=== PATIENT | female | born 1980 | race Caucasian/White ===

== ENCOUNTER 2018-02-23 10:10 | Emergency (ER) | payer SELFPAY ==
[2018-02-23 10:11] VITALS: BP 181/111; PULSE 104; RESP 17; TEMP 37.1; O2SAT 93; BMI 22.4
--- NOTE | 2018-02-23 10:32 | ED.VISSUMM ---
- ER Visit Summary Date of Service: 02/23/18 Chief Complaint: Abdominal pain, nausea, cough, sore throat History of Present Illness: The patient is a 38 F reports sinus pressure and headache for the past 3 or 4 days. She states sometimes she bends over and stands up she feels the pressure shifting. She has had runny nose and posterior pharyngeal drainage. She has mild nausea and cough. She denies fever or chills. She has had no vomiting or diarrhea. She states her abdomen she believes is sore from coughing. Physical Examination: Vital signs are significant for blood pressure of 181/111, temperature 98.8, heart rate 104, respiratory rate 17, pulse ox 93% on room air. Patient sitting upright in bed in no acute distress. She is nontoxic appearing. Head and neck examination reveals TMs to be clear bilaterally. She has mild posterior pharyngeal drainage. Uvula is midline and not enlarged. She is tolerating secretions well and has a strong voice. Heart is regular rate and rhythm. Lungs are clear. Abdomen is soft with minimal diffuse tenderness. Active bowel sounds are noted throughout. There is no guarding or rebound. Test Results: Two-view chest x-ray per my read reveals no focal infiltrate. Emergency Department Course and Treatment: Patient was given Fioricet, Zofran, and Afrin nasal spray. Repeat evaluation she states she still has a headache but overall does feel improved. Lungs remain clear with good air movement. Patient be discharged with a prescription for Fioricet. Blood pressure will be rechecked prior to discharge. Treatment Plan: [] Disposition: Discharge Impression: 1. Viral URI 2. Sinus headache This note was generated with [employer] dictation software. It may contain incorrect words, spelling, and punctuation that were not noted in review of the chart prior to signing ED Disposition - Plan for ED Patient: Chief Complaint: Abd Pain Referrals: Lukas Mar DO [Primary Care Provider] -
[2018-02-23] MEDS: Ondansetron ODT 4 MG Tablet PO (11:00)
[2018-02-23] MEDS: Oxymetazoline 0.05% 1 SPRAY SPRAY.BTL NASAL (11:00)
[2018-02-23] MEDS: Acetaminophen/Butalbital/Caffe 1 Tablet 2 TABLET PO (11:08)
--- NOTE | 2018-02-23 11:20 | RAD_ITS ---
STUDY: X-RAY CHEST REASON FOR EXAM: Female, 38 years old. Cough and sore throat x2 days. TECHNIQUE: PA and lateral views. COMPARISON: None. FINDINGS: The lungs are clear and expanded. There is no demonstrated pleural abnormality. Normal size heart. Normal mediastinum and heidy. Normal visualized pulmonary arteries. Normal visualized aortic arch and descending thoracic aorta. Normal visualized thoracic spine. Normal visualized ribs, clavicles, and shoulders. There is no demonstrated abnormality of the visualized soft tissue structures of the upper abdomen. RAD/Chest PA and Lateral IMPRESSION: Normal x-ray examination of the chest. Electronically Signed: Foster Del Cid MD at 12:02 EDT , Service support ,
--- NOTE | 2018-02-23 12:03 | ED.DEP ---
ED Disposition - Plan for ED Patient: Disposition: Home or Assisted Living Chief Complaint: Abd Pain Instructions: ED URI Viral, ED Headache Sinus Prescriptions: Acetaminophen/Butalbital/Caffe [Fioricet] 1 - 2 tablet PO Q4H PRN PRN #14 tablet PRN Reason: Headache Referrals: Lukas Mar DO [Primary Care Provider] - 1 Week if not improving
[2018-02-23 12:18] VITALS: BP 164/106; PULSE 87; RESP 14; O2SAT 98
== END 2018-02-23 12:22 | disposition home or self-care (01) ==
PROVIDERS: Emergency Provider Emergency Medicine; Family Provider Student in an Organized Health Care Education/Training Program; PCP Student in an Organized Health Care Education/Training Program
DX: J06.9 Acute upper respiratory infection, unspecified (principal); R51 Headache; Z72.0 Tobacco use
CPT/HCPCS: 71046; 99284

== ENCOUNTER 2018-04-13 02:45 | Emergency (ER) | payer SELFPAY ==
[2018-04-13 02:45] VITALS: BP 183/119; PULSE 104; RESP 20; TEMP 37; O2SAT 97; BMI 23.8
--- NOTE | 2018-04-13 02:55 | ED.VISSUMM ---
- ER Visit Summary Date of Service: 04/13/18 Chief Complaint: Left elbow pain after fall and injury History of Present Illness: The patient is a 38 F trip yesterday in the kitchen striking her left elbow versus a counter. Has had pain and swelling since that time. No prior history or surgery to the left upper extremity. She is right-hand dominant. Denies other injuries. Physical Examination: Well-appearing middle-age female. Vital signs are stable afebrile. H EENT exam unremarkable nontender. Pupils are round reactive light. No signs of facial or scalp trauma. C-spine nontender. Normal range of motion. Lungs clear to auscultation bilaterally. Heart regular rhythm no murmur. Rate about 100. Chest wall nontender. Abdomen soft nontender. No peritoneal signs. Pelvic girdle intact. The right upper and both lower extremities are nontender normal range of motion. No foreign bodies. Neurovascular intact. Back nontender. Her left upper extremity she has pain on palpation of the left elbow. There is a contusion and swelling. She has full flexion but can only extend to about 150?. She cannot do 180? of extension. The shoulder and proximal humerus along with the mid and distal forearm wrist and hand are nontender neurovascular intact. She has 5 out of 5 filter tank tender helper strength. Normal sensation. And a strong radial pulse. Neurological exam is unremarkable. Test Results: Left elbow x-ray 3 views shows soft tissue swelling but no fracture or dislocation. Emergency Department Course and Treatment: [place] ?2 for pain. Treatment Plan: Repeat exam patient is doing well at 0308. Ice and elevate. [place] home pack for severe pain otherwise Motrin for pain and swelling. Follow-up with her primary care physician if not improving in 1 week. Disposition: Discharge Impression: Acute fall Left elbow contusion This note was generated with [employer] dictation software. It may contain incorrect words, spelling, and punctuation that were not noted in review of the chart prior to signing ED Disposition - Plan for ED Patient: Chief Complaint: Upper Extremity Injury Referrals: Lukas Mar DO [Primary Care Provider] -
[2018-04-13] MEDS: HYDROcodone Bitartrate/Apap 5/325 Tablet PO ×2 (03:01→03:19)
--- NOTE | 2018-04-13 03:09 | DCINST.ED_ITS ---
ED Disposition - Plan for ED Patient: Disposition: Home or Assisted Living Chief Complaint: Upper Extremity Injury Instructions: ED Contusion Upper Ext Referrals: Lukas Mar DO [Primary Care Provider] - 1 Week if not improving Additional Instructions: Ice and elevate left elbow to decrease pain and swelling. Motrin for pain and swelling. Very limited [place] for more severe pain. Follow-up your primary care physician in 1 week if not significantly improving. Return to ER if worse. Your x-rays showed soft tissue swelling but no broken bones or dislocations.
[2018-04-13 03:21] VITALS: PULSE 100; RESP 16; O2SAT 97
== END 2018-04-13 03:22 | disposition home or self-care (01) ==
PROVIDERS: Emergency Provider Emergency Medicine; Family Provider Student in an Organized Health Care Education/Training Program; PCP Student in an Organized Health Care Education/Training Program
DX: S50.02XA Contusion of left elbow, initial encounter (principal); W01.198A Fall on same level from slipping, tripping and stumbling with subsequent striking against other object, initial encounter; Y93.9 Activity, unspecified; Y92.000 Kitchen of unspecified non-institutional (private) residence as the place of occurrence of the external cause; Y99.9 Unspecified external cause status; D64.9 Anemia, unspecified; Z72.0 Tobacco use
CPT/HCPCS: 73080; 99283

== ENCOUNTER 2018-08-23 20:07 | Emergency (ER) | payer SELFPAY ==
[2018-08-23 20:09] VITALS: BP 189/119; PULSE 120; RESP 16; TEMP 36.8; O2SAT 97; BMI 22.5
--- NOTE | 2018-08-23 21:02 | ED.RN ---
pt left without being seen.
== END 2018-08-23 21:02 ==
LOC: ED 21:04
PROVIDERS: Emergency Provider Emergency Medicine; Family Provider Student in an Organized Health Care Education/Training Program; PCP Student in an Organized Health Care Education/Training Program
DX: R51 Headache (principal)

== ENCOUNTER 2018-09-11 21:02 | Emergency (ER) | payer SELFPAY ==
[2018-09-11 21:03] VITALS: BP 157/97; PULSE 123; RESP 18; TEMP 36.7; O2SAT 96; BMI 23.3
--- NOTE | 2018-09-11 21:37 | ED.VISSUMM ---
- ER Visit Summary Date of Service: 09/11/18 Chief Complaint: Migraine headache History of Present Illness: The patient is a 38 F history of migraine headaches, ovarian cancer, anemia and hypertension. Patient states she is had migraine A for last 2 days. Also tonight they were pulled over by the police and that is when she said she had a headache and came to the ER. She denies any falls or head trauma. She is on no blood thinners. She is a history of migraines and states this is similar to her other migraine. She does have photophobia. Physical Examination: Middle-aged female. Vital signs are stable. She is afebrile. She does not accept. HEENT exam pupils round reactive light. No signs of trauma to her face or scalp. Pupils are about 2-3 mm bilaterally. Neck nontender no meningismus. Able to touch chin to chest. Lungs clear to auscultation bilaterally. Heart tachycardic rate about 120 no murmur. Chest wall nontender. Abdomen soft and nontender. Normal bowel sounds no peritoneal signs. Remedies moves all 4. Neurovascular intact. Equal symmetrical customs investigator strength. Dorsi plantar flexion intact. Back nontender. Patient is very thin and cachectic. Neurologically awake and alert with no focal motor deficits. NIH score is 0. Test Results: None Emergency Department Course and Treatment: Patient was offered IV medications and fluids. She refused. Stated she only wanted a Fioricet and wanted to go home. She will be given 2 Fioricet discharge. Treatment Plan: Discharge. Prescription written for her lisinopril and clonidine that she is out of both prescriptions for her blood pressure. Follow-up with her PCP. Disposition: Discharge Impression: Acute cephalgia History of migraine headaches History of meth amphetamine abuse History of hypertension out of medications with med refill This note was generated with [employer] dictation software. It may contain incorrect words, spelling, and punctuation that were not noted in review of the chart prior to signing ED Disposition - Plan for ED Patient: Chief Complaint: Headache Referrals: Lukas Mar DO [Primary Care Provider] -
--- NOTE | 2018-09-11 21:40 | ED.DCSUM_ITS ---
- ER Visit Summary Date of Service: 09/11/18 Chief Complaint: Migraine headache History of Present Illness: The patient is a 38 F history of migraine headaches, ovarian cancer, anemia and hypertension. Patient states she is had migraine A for last 2 days. Also tonight they were pulled over by the police and that is when she said she had a headache and came to the ER. She denies any falls or head trauma. She is on no blood thinners. She is a history of migraines and states this is similar to her other migraine. She does have photophobia. Physical Examination: Middle-aged female. Vital signs are stable. She is afebrile. She does not accept. HEENT exam pupils round reactive light. No signs of trauma to her face or scalp. Pupils are about 2-3 mm bilaterally. Neck nontender no meningismus. Able to touch chin to chest. Lungs clear to auscultation bilaterally. Heart tachycardic rate about 120 no murmur. Chest wall nontender. Abdomen soft and nontender. Normal bowel sounds no peritoneal signs. Remedies moves all 4. Neurovascular intact. Equal symmetrical sewer cleaner strength. Dorsi plantar flexion intact. Back nontender. Patient is very thin and cachectic. Neurologically awake and alert with no focal motor deficits. NIH score is 0. Test Results: None Emergency Department Course and Treatment: Patient was offered IV medications and fluids. She refused. Stated she only wanted a Fioricet and wanted to go home. She will be given 2 Fioricet discharge. Treatment Plan: Discharge. Prescription written for her lisinopril and clonidine that she is out of both prescriptions for her blood pressure. Follow- up with her PCP. Disposition: Discharge Impression: Acute cephalgia History of migraine headaches History of meth amphetamine abuse History of hypertension out of medications with med refill This note was generated with [employer] dictation software. It may contain incorrect words, spelling, and punctuation that were not noted in review of the chart prior to signing ED Disposition - Plan for ED Patient: Chief Complaint: Headache Referrals: Lukas Mar DO [Primary Care Provider] -
--- NOTE | 2018-09-11 21:40 | ED.DEP ---
ED Disposition - Plan for ED Patient: Disposition: Home or Assisted Living Chief Complaint: Headache Instructions: ED Headache Migraine Prescriptions: Lisinopril [Prinivil] 10 mg PO DAILY #30 tab Clonidine HCl [Catapres] 0.1 mg PO BID #60 tab Referrals: Lukas Mar DO [Primary Care Provider] - As Needed Additional Instructions: Follow-up with your primary care physician.
[2018-09-11] MEDS: Acetaminophen/Butalbital/Caffe 1 Tablet 2 TABLET PO (21:49)
[2018-09-11 21:53] VITALS: BP 159/94; PULSE 106; RESP 20; O2SAT 96
--- NOTE | 2018-09-11 21:53 | ED.RN ---
pt verbalized that she wanted to stay clean(from drugs) encouragement given and educated on 180.
--- OUTSIDE RECORDS SUMMARY | 2018-11-16 08:44 | XMS RPT_ITS ---
:1980 Author Organization [facility] Care Team Providers Name Role Phone Lukas Mar Primary Care Unavailable Omar Ortiz Attending Unavailable Lukas Mar Primary Care Unavailable Jamie Bean Attending Unavailable Lukas Mar Primary Care Unavailable Reina Gonzalez Attending Unavailable Lukas Mar Primary Care Unavailable Alex Todd Attending Unavailable Lukas Mar Primary Care Unavailable Jamie Bean Attending Unavailable PROBLEMS PROBLEMS No Problem Records FoundPROCEDURES PROCEDURES No Procedure Records FoundRESULTS RESULTS EMERGENCY DEPARTMENT Observed: 09/12/2018 Status: F Source: [place] SUMMARY 12:00 AM [facility] Medical Records Department [address] [address] Emergency Department Summary 09/11/187 MR#: [id number] Acct: [id number] Name: KASSIE PRADO Rep #: [id number] : 1980 38 From: Jamie Bean MD PCP: Lukas Ferreira DO Status: DEP ER - ER Visit Summary Date of Service: 09/11/18 Chief Complaint: Migraine headache History of Present Illness: The patient is a 38 F history of migraine headaches, ovarian cancer, anemia and hypertension. Patient states she is had migraine A for last 2 days. Also tonight they were pulled over by the police and that is when she said she had a headache and came to the ER. She denies any falls or head trauma. She is on no blood thinners. She is a history of migraines and states this is similar to her other migraine. She does have photophobia. Physical Examination: Middle-aged female. Vital signs are stable. She is afebrile. She does not accept. HEENT exam pupils round reactive light. No signs of trauma to her face or scalp. Pupils are about 2-3 mm bilaterally. Neck nontender no meningismus. Able to touch chin to chest. Lungs clear to auscultation bilaterally. Heart tachycardic rate about 120 no murmur. Chest wall nontender. Abdomen soft and nontender. Normal bowel sounds no peritoneal signs. Remedies moves all 4. Neurovascular intact. Equal symmetrical merchandise planner strength. Dorsi plantar flexion intact. Back nontender. Patient is very thin and cachectic. Neurologically awake and alert with no focal motor deficits. NIH score is 0. Test Results: None Emergency Department Course and Treatment: Patient was offered IV medications and fluids. She refused. Stated she only wanted a Fioricet and wanted to go home. She will be given 2 Fioricet discharge. Treatment Plan: Discharge. Prescription written for her lisinopril and clonidine that she is out of both prescriptions for her blood pressure. Follow- up with her PCP. Disposition: Discharge Impression: Acute cephalgia History of migraine headaches History of meth amphetamine abuse History of hypertension out of medications with med refill This note was generated with [employer] dictation software. It may contain incorrect words, spelling, and punctuation that were not noted in review of the chart prior to signing ED Disposition - Plan for ED Patient: Chief Complaint: Headache Referrals: Lukas Mar, DO [Primary Care Provider] - What to do if you have Problems For any increased pain, shortness of breath, bleeding, nausea or vomiting, chest pain, or any unexpected problems, contact your Primary Care Provider. Call [facility] ([phone]) or report to the closest Emergency Room. Call 911 if necessary. 09/12/18 0000 <Electronically signed by Jamie Bean MD> Date Jamie Bean MD Cosigner Signature (If Indicated): Date CC: Lukas Ferreira DO DISCHARGE INSTRUCTION Observed: 09/12/2018 Status: F Source: [place] 12:00 AM [facility] [place] [facility] Medical Records Department [address] [place] [address] Discharge Instruction 09/11/18 2140 MR#: [id number] Acct: [id number] Name: KASSIE PRADO Rep #: [id number] : 1980 38 From: Jamie Bean MD PCP: Lukas Ferreira DO Status: DEP ER ED Disposition - Plan for ED Patient: Disposition: Home or Assisted Living Chief Complaint: Headache Instructions: ED Headache Migraine Prescriptions: Lisinopril [Prinivil] 10 mg PO DAILY #30 tab Clonidine HCl [Catapres] 0.1 mg PO BID #60 tab Referrals: Lukas Mar DO [Primary Care Provider] - As Needed Additional Instructions: Follow-up with your primary care physician. What to do if you have Problems For any increased pain, shortness of breath, bleeding, nausea or vomiting, chest pain, or any unexpected problems, contact your Primary Care Provider. Call [facility] ([phone]) or report to the closest Emergency Room. Call 911 if necessary. 09/12/18 0000 <Electronically signed by Jamie Bean MD> Date Jamie Bean MD Cosigner Signature (If Indicated): Date CC: Lukas Ferreira DO CNCO Observed: 08/27/2018 Status: COMPLETED Source: [place] 12:00 AM [facility] RE[facility] Letter Text Department of Family Medicine [address] [place], [place] [address] Appointments: [phone] August 27, 2018 Kassie Prado [address] [facility] [address] F#: [id number] Dear Ms. Prado , It has come to my attention that you missed your appointment on 08/20/2018 without calling to cancel. This is the 3RD time in the last 12 months that we have discovered that you have failed to keep an appointment without calling to cancel. We have sent you (2) letters on 12/29/2017 and 07/21/2018 regarding previous missed appointments. Again, I want to reiterate that it is your responsibility to keep appointments and to alert us in a timely manner when you are unable to do so. Our first concern is your health. If the medical problem for which you made the appointment is still present, please reschedule soon so that you can receive care for that problem. It is important that you notify our office if you are unable to make an appointment, so we may use that time to see other patients. If our information is not correct, I would like you to please call us so we can correct out records. Our protocol regarding patients that do not show up for appointments, four times within a rolling year?s period, without calling to notify us of the cancellation, is to ask you to take immediate steps to place your self under the care of a new practitioner outside of the Department of Family Medicine. A rolling year for you is defined as the date of the first incident forward within a 12 month period. Be mindful that you already have (3) incidents. If you have a fourth occurrence we will expect you to take immediate steps to place yourself under the care of a practitioner outside of the Department of Family Medicine. I hope that you will make every effort to keep in touch with our office should problems arise in your ability to follow through with scheduled appointments. Again, if any of this information is incorrect, I apologize in advance. Please call the [facility] Office at [phone], if you have questions about this protocol or question the data that we have on file so that we can delete this letter from your file if there is an error. Sincerely, Dr. Mar EMERGENCY DEPARTMENT Observed: 04/13/2018 Status: F Source: [place] SUMMARY 5:58 AM [facility] [place] [facility] Medical Records Department [address] [place] [address] Emergency Department Summary 04/13/18 0255 MR#: [id number] Acct: [id number] Name: KASSIE PRADO Rep #: [id number] : 1980 38 From: Jamie Bean MD PCP: Lukas Ferreira DO Status: DEP ER - ER Visit Summary Date of Service: 04/13/18 Chief Complaint: Left elbow pain after fall and injury History of Present Illness: The patient is a 38 F trip yesterday in the kitchen striking her left elbow versus a counter. Has had pain and swelling since that time. No prior history or surgery to the left upper extremity. She is right-hand dominant. Denies other injuries. Physical Examination: Well-appearing middle-age female. Vital signs are stable afebrile. H EENT exam unremarkable nontender. Pupils are round reactive light. No signs of facial or scalp trauma. C-spine nontender. Normal range of motion. Lungs clear to auscultation bilaterally. Heart regular rhythm no murmur. Rate about 100. Chest wall nontender. Abdomen soft nontender. No peritoneal signs. Pelvic girdle intact. The right upper and both lower extremities are nontender normal range of motion. No foreign bodies. Neurovascular intact. Back nontender. Her left upper extremity she has pain on palpation of the left elbow. There is a contusion and swelling. She has full flexion but can only extend to about 150 . She cannot do 180 of extension. The shoulder and proximal humerus along with the mid and distal forearm wrist and hand are nontender neurovascular intact. She has 5 out of 5 merchandise planner strength. Normal sensation. And a strong radial pulse. Neurological exam is unremarkable. Test Results: Left elbow x-ray 3 views shows soft tissue swelling but no fracture or dislocation. Emergency Department Course and Treatment: [place] 2 for pain. Treatment Plan: Repeat exam patient is doing well at 0308. Ice and elevate. [place]on home pack for severe pain otherwise Motrin for pain and swelling. Follow- up with her primary care physician if not improving in 1 week. Disposition: Discharge Impression: Acute fall Left elbow contusion This note was generated with tolingoation software. It may contain incorrect words, spelling, and punctuation that were not noted in review of the chart prior to signing ED Disposition - Plan for ED Patient: Chief Complaint: Upper Extremity Injury Referrals: Lukas Mar DO [Primary Care Provider] - What to do if you have Problems For any increased pain, shortness of breath, bleeding, nausea or vomiting, chest pain, or any unexpected problems, contact your Primary Care Provider. Call [facility] ([phone]) or report to the closest Emergency Room. Call 911 if necessary. 04/13/18 0558 <Electronically signed by Jamie Bean MD> Date Jamie Bean MD Cosigner Signature (If Indicated): Date CC: Lukas Ferreira DO DISCHARGE INSTRUCTION Observed: 04/13/2018 Status: F Source: [place] 5:58 AM [facility] [facility] [place] [facility] Medical Records Department [address] [place] [address] Discharge Instruction 04/13/18 0308 MR#: [id number] Acct: [id number] Name: KASSIE PRADO Rep #: [id number] : 1980 38 From: Jamie Bean MD PCP: Lukas Ferreira DO Status: [facility] ER ED Disposition - Plan for ED Patient: Disposition: Home or Assisted Living Chief Complaint: Upper Extremity Injury Instructions: ED Contusion Upper Ext Referrals: Lukas Mar DO [Primary Care Provider] - 1 Week if not improving Additional Instructions: Ice and elevate left elbow to decrease pain and swelling. Motrin for pain and swelling. Very limited Macedon for more severe pain. Follow-up your primary care physician in 1 week if not significantly improving. Return to ER if worse. Your x-rays showed soft tissue swelling but no broken bones or dislocations. What to do if you have Problems For any increased pain, shortness of breath, bleeding, nausea or vomiting, chest pain, or any unexpected problems, contact your Primary Care Provider. Call [facility] ([phone]) or report to the closest Emergency Room. Call 911 if necessary. 04/13/18 0558 <Electronically signed by Jamie Bean MD> Date Jamie Bean MD Cosigner Signature (If Indicated): Date CC: Lukas Ferreira DO ELBOW MIN 3 VIEWS Observed: 04/13/2018 Status: F Source: [place] 2:50 AM [facility] [facility] [place] [facility] Imaging Services [address] [place] [address] [place] [address] Elbow min 3 Views MR#: [id number] Acct: [id number] Name: KASSIE PRADO Rep #: [id number] : 1980 F 38 From: Laurie Levy MD PCP: Lukas Ferreira DO Status: REG ER Study: Elbow min 3 Views Date of Exam: 04/13/18 Exam# [id number] Ordering Dr: Jamie Bean MD STUDY: X-RAY - LEFT ELBOW REASON FOR EXAM: Female, 38 years old. Pain and edema, limited range of motion, status post fall TECHNIQUE: 3 view(s) of the elbow. COMPARISON: None. FINDINGS: Normal visualized humerus, radius and ulna. Normal radiocapitellar and ulnotrochlear articulations. Dorsal soft tissue swelling along the olecranon. RAD/Elbow min 3 Views IMPRESSION: There is no acute displaced fracture or dislocation. Soft tissue injury. Electronically Signed: Laurie Levy MD at 3:12 EDT , Service support , CC: Jamie Bean MD; Lukas Ferreira DO Equipment Man: Signed DISCHARGE INSTRUCTION Observed: 03/16/2018 Status: F Source: [place] 5:13 PM [facility] Medical Records Department [address] [place] [address] Discharge Instruction 03/16/181711 MR#: [id number] Acct: [id number] Name: KASSIE PRADO Rep #: [id number] : 1980 38 From: Alex Todd MD PCP: Lukas Ferreira DO Status: PRE ER ED Disposition - Plan for ED Patient: Chief Complaint: Anxiety Instructions: ED Panic Attack, ED Drug Abuse General Referrals: Lukas Mar DO [Primary Care Provider] - What to do if you have Problems For any increased pain, shortness of breath, bleeding, nausea or vomiting, chest pain, or any unexpected problems, contact your Primary Care Provider. Call [facility] Registry ([phone]) or report to the closest Emergency Room. Call 911 if necessary. 03/16/181712 <Electronically signed by Alex Todd MD> Date Alex Todd MD Cosigner Signature (If Indicated): Date CC: Lukas Ferreira DO EMERGENCY DEPARTMENT Observed: 03/16/2018 Status: F Source: [place] SUMMARY 5:12 PM [facility] Medical Records Department [address] [place] [address] Emergency Department Summary 03/16/181709 MR#: [id number] Acct: [id number] Name: KASSIE PRADO Rep #: [id number] : 1980 38 From: Alex Todd MD PCP: Lukas Ferreira DO Status: PRE ER - ER Visit Summary Date of Service: 03/16/18 Chief Complaint: Crying History of Present Illness: The patient is a 38 F who was arrested today for shoplifting. They were checking her bag and found some possible possible methamphetamine. She was taken to [facility]. She began crying and stating that both of her hands were tingling. She also complains of a headache. She was sent here for evaluation. Patient does admit to methamphetamine use. She denies any chest pain shortness of breath nausea vomiting. Physical Examination: Initial blood pressure 179/115 heart rate 120 Patient very anxious shaking tearful crying Heart regular rhythm tachycardia Lungs are clear Abdomen soft Alert with no focal or lateralizing neurological deficits normal sensation to light touch normal strength Test Results: Not indicated Emergency Department Course and Treatment: Patient was given oral Ativan and monitor. On reevaluation she is resting comfortably in bed. Her repeat heart rate is 84. I do believe that this is related to an anxiety reaction and methamphetamine use. She is improved with Ativan. No diagnostic workup is indicated at this time. I do believe she is medically cleared for fpc. Treatment Plan: [] Disposition: Discharge Impression: Anxiety reaction Methamphetamine abuse This note was generated with [employer] dictation software. It may contain incorrect words, spelling, and punctuation that were not noted in review of the chart prior to signing ED Disposition - Plan for ED Patient: Chief Complaint: Anxiety Referrals: Lukas Mar, DO [Primary Care Provider] - What to do if you have Problems For any increased pain, shortness of breath, bleeding, nausea or vomiting, chest pain, or any unexpected problems, contact your Primary Care Provider. Call [facility] ([phone]) or report to the closest Emergency Room. Call 911 if necessary. 03/16/18 1712 <Electronically signed by Alex Todd MD> Date Alex Todd MD Cosigner Signature (If Indicated): Date CC: Lukas Ferreira DO EMERGENCY DEPARTMENT Observed: 02/23/2018 Status: F Source: [place] SUMMARY 5:22 PM [facility] [facility] Medical Records Department [address] [place] [address] Emergency Department Summary 02/23/18 1032 MR#: [id number] Acct: [id number] Name: KASSIE PRADO Rep #: [id number] : 1980 38 From: Reina Gonzalez MD PCP: Lukas Ferreira DO Status: DEP ER - ER Visit Summary Date of Service: 02/23/18 Chief Complaint: Abdominal pain, nausea, cough, sore throat History of Present Illness: The patient is a 38 F reports sinus pressure and headache for the past 3 or 4 days. She states sometimes she bends over and stands up she feels the pressure shifting. She has had runny nose and posterior pharyngeal drainage. She has mild nausea and cough. She denies fever or chills. She has had no vomiting or diarrhea. She states her abdomen she believes is sore from coughing. Physical Examination: Vital signs are significant for blood pressure of 181/111, temperature 98.8, heart rate 104, respiratory rate 17, pulse ox 93% on room air. Patient sitting upright in bed in no acute distress. She is nontoxic appearing. Head and neck examination reveals TMs to be clear bilaterally. She has mild posterior pharyngeal drainage. Uvula is midline and not enlarged. She is tolerating secretions well and has a strong voice. Heart is regular rate and rhythm. Lungs are clear. Abdomen is soft with minimal diffuse tenderness. Active bowel sounds are noted throughout. There is no guarding or rebound. Test Results: Two-view chest x-ray per my read reveals no focal infiltrate. Emergency Department Course and Treatment: Patient was given Fioricet, Zofran, and Afrin nasal spray. Repeat evaluation she states she still has a headache but overall does feel improved. Lungs remain clear with good air movement. Patient be discharged with a prescription for Fioricet. Blood pressure will be rechecked prior to discharge. Treatment Plan: [] Disposition: Discharge Impression: 1. Viral URI 2. Sinus headache This note was generated with tolingoation software. It may contain incorrect words, spelling, and punctuation that were not noted in review of the chart prior to signing ED Disposition - Plan for ED Patient: Chief Complaint: Abd Pain Referrals: Lukas Mar DO [Primary Care Provider] - What to do if you have Problems For any increased pain, shortness of breath, bleeding, nausea or vomiting, chest pain, or any unexpected problems, contact your Primary Care Provider. Call [facility] ([phone]) or report to the closest Emergency Room. Call 911 if necessary. 02/23/18 1722 <Electronically signed by Reina Gonzalez MD> Date Reina Gonzalez MD Cosigner Signature (If Indicated): Date CC: Lukas Ferreira DO DISCHARGE INSTRUCTION Observed: 02/23/2018 Status: F Source: [place] 12:04 PM [facility] [place] [facility] Medical Records Department [address] [place] [address] Discharge Instruction 02/23/18 1203 MR#: [id number] Acct: [id number] Name: KASSIE PRADO Rep #: [id number] : 1980 38 From: Reina Gonzalez MD PCP: Lukas Ferreira DO Status: REG ER ED Disposition - Plan for ED Patient: Disposition: Home or Assisted Living Chief Complaint: Abd Pain Instructions: ED URI Viral, ED Headache Sinus Prescriptions: Acetaminophen/Butalbital/Caffe [Fioricet] 1 - 2 tablet PO Q4H PRN PRN #14 tablet PRN Reason: Headache Referrals: Lukas Mar DO [Primary Care Provider] - 1 Week if not improving What to do if you have Problems For any increased pain, shortness of breath, bleeding, nausea or vomiting, chest pain, or any unexpected problems, contact your Primary Care Provider. Call [facility] ([phone]) or report to the closest Emergency Room. Call 911 if necessary. 02/23/18 1204 <Electronically signed by Reina Gonzalez MD> Date Reina Gonzalez MD Cosigner Signature (If Indicated): Date CC: Lukas Ferreira DO CHEST PA AND LATERAL Observed: 02/23/2018 Status: F Source: [place] 10:26 AM [facility] [facility] Imaging Services [address] [place] [address] Chest PA and Lateral MR#: [id number] Acct: [id number] Name: KASSIE PRADO Rep #: [id number] : 1980 F 38 From: Foster Del Cid MD PCP: Lukas Ferreira DO Status: REG ER Study: Chest PA and Lateral Date of Exam: 02/23/18 Exam# [id number] Ordering Dr: Reina Gonzalez MD STUDY: X-RAY CHEST REASON FOR EXAM: Female, 38 years old. Cough and sore throat x2 days. TECHNIQUE: PA and lateral views. COMPARISON: None. FINDINGS: The lungs are clear and expanded. There is no demonstrated pleural abnormality. Normal size heart. Normal mediastinum and heidy. Normal visualized pulmonary arteries. Normal visualized aortic arch and descending thoracic aorta. Normal visualized thoracic spine. Normal visualized ribs, clavicles, and shoulders. There is no demonstrated abnormality of the visualized soft tissue structures of the upper abdomen. RAD/Chest PA and Lateral IMPRESSION: Normal x-ray examination of the chest. Electronically Signed: Foster Del Cid MD at 12:02 EDT , Service support , CC: Reina Gonzalez MD; Lukas Ferreira DO Equipment Man: Signed CNCO Observed: 12/29/2017 Status: COMPLETED Source: [place] 12:00 AM [facility] REPOSITORY Letter Text [address] [place] [id number] Kassie Prado [address] [facility] [address] 12/29/2017 [facility] #: [id number] Dear Kassie, It has come to my attention that you have missed your appointment on 11/29/2017 without calling to cancel. Since you have failed to keep an appointment without calling to cancel (24 hours before that scheduled time), we are sending this letter to inform you of our protocol regarding NO SHOWS. Canceling Appointment Policy 1. Because we have very busy practices, we have implemented a policy in which a patient may be discharged from the Clinic for missing 4 appointments within a 12 month rolling year. 2. Please call the Clinic to cancel and/or reschedule an appointment within 24 hours of the appointment or sooner, if possible. This will enable the doctor or other health care provider to schedule that time for another patient. If any of this information is incorrect, I apologize in advance. Please contact our office if you have any questions about this protocol or question the data that we have on file so that we can delete this letter from your file if there is an error. Sincerely, Lukas Mar DO [facility] Observed: 12/29/2017 Status: COMPLETED Source: [place] 12:00 AM [facility] REPOSITORY Letter Text [facility] Medicine [address] [place], [place] [address] 12/29/2017 Kassie Prado [id number] [address] [facility] [address] Dear Ms. Prado: I noted on my schedule today that we had an appointment. I am sorry I missed you. I realize that there are many distractions and busy schedules. Please call ahead of time, if you are unable to make it. If this was because of a miscommunication, please ensure that you speak with one of the schedulers over the phone/in person after each appointment (this is the safest way, since we can't guarantee that you will receive your appointments via mail). If you need to cancel, please call us in advance. Thanks for your understanding, and hope to see you again soon. Sincerely, Jillian Weir NP [facility]CO Observed: 11/07/2017 Status: COMPLETED Source: [place] 12:00 AM [facility] REPOSITORY Letter Text Kassie Prado [address] [facility] [address] 11/07/2017 [facility] #: [id number] Dear , Due to a change in the provider's schedule it has been necessary to reschedule your Appointment. Your original appointment was scheduled for 12/06/2017 at 8:00 AM with Lukas Mar DO. Your new appointment is now scheduled on 11/29/2017 at 8:00 AM with Lukas Mar DO. If this new appointment is not convenient for you, please contact our office at [phone]. Thank you for choosing the [facility] as your Healthcare Provider . Sincerely, Family Medicine Appointment Office PROGRESS Observed: 10/14/2017 Status: COMPLETED Source: [place] 10:26 AM [facility] REPOSITORY HNO ID: [id number] Author: Terri Gutiérrez Psr Service: (none) Author Type: (none) Type: Progress Notes Filed: 10/14/2017 10:26 AM Note Text: 3 rd attempt/left message to call back to schedule CT. Patient has not schedule, My chart message was also sent. PROGRESS Observed: 10/13/2017 Status: COMPLETED Source: [place] 8:58 AM [facility] REPOSITORY HNO ID: [id number] Author: Terri Gutiérrez Psr Service: (none) Author Type: (none) Type: Progress Notes Filed: 10/13/2017 8:58 AM Note Text: 2 nd attempt/left message to call back to schedule CT PROGRESS Observed: 10/10/2017 Status: COMPLETED Source: [place] 9:49 AM [facility] REPOSITORY HNO ID: [id number] Author: Gatito Villanueva Psr Service: (none) Author Type: (none) Type: Progress Notes Filed: 10/12/2017 10:03 PM Note Text: First attempt/message left to schedule CT PROGRESS Observed: 10/08/2017 Status: COMPLETED Source: [place] 1:30 PM [facility] REPOSITORY HNO ID: [id number] Author: Ana Biggs [facility] Service: (none) Author Type: (none) Type: Progress Notes Filed: 10/12/2017 10:03 PM Note Text: Please call patient and assist in scheduling her CT scan. I spoke with Kassie and she states she forgot about her appointment because her grandmother has been sick and in and out of the hospital. She agreed to reschedule her appointment and is scheduled to see Dr. Mar 11/05/17. She states she got a letter in the mail stating her CT scan is covered and she wants to go ahead and schedule that as well. I will transfer to PSR so they can help her do this. The patient has been identified by name and date of : YES I have scheduled the patient for an appointment on 11/05/17 The patient will report to the lab prior to the visit. PHMA Documentation 10/08/2017 Opts out of [facility] No Appointments Scheduled Scheduled PCP Appt Ana Biggs Cma PROGRESS Observed: 10/08/2017 Status: COMPLETED Source: [place] 1:07 PM [facility] REPOSITORY HNO ID: [id number] Author: Ana Kalyan [facility] Service: (none) Author Type: (none) Type: Progress Notes Filed: 10/12/2017 10:03 PM Note Text: PHMA TEAMLET DOCUMENTATION Provider Action/FYI: PSR Action/FYI: Teamlet has identified patient by name and date of . Team: Myself, Vel Abraham Eva, Sue ? Last Office Visit:Visit date not found ? Next Office Visit: Visit date not found ? Last BP/Labs: Blood Pressure: Last 3 Encounter BP Readings: Date: BP: 09/03/2017 180/110 08/29/2017 130/88 05/21/2017 160/117[ismael BP Average[ Lipids: Cholesterol, Total (mg/dL) Date Value 01/20/2015 187 HDL Cholesterol (mg/dL) Date Value 01/20/2015 48 LDL Cholesterol (mg/dL) Date Value 01/20/2015 112 Triglyceride (mg/dL) Date Value 01/20/2015 137 HGB A1C: No results found for: HBA1C TSH: TSH (uU/mL) Date Value 08/19/2017 0.803 03/21/2015 1.340 ) Care Gap: HTN - Last BP NOT under 140/90 Plan: ? Type of appointment needed: Follow-up HTN next available with Provider pcp or [facility] APPLICATIONS MANAGER Labs, HM and Immunization: Health Maintenance Due: TETANUS due on 1989 INFLUENZA(1) due on 04/25/2017 Ana Biggs [facility] CNPTOUTREACH Observed: 10/08/2017 Status: COMPLETED Source: [place] 12:00 AM [facility] REPOSITORY Patient Outreach (INTMWS) KASSIE PRADO ([id number]) 1980 F Date Time Provider Department 10/08/17 ANA BIGGS ([facility]) INTMWS During your visit today, we recorded the following information about you: Ana Biggs [facility] 10/12/2017 10:03 PM Signed PHMA TEAMLET DOCUMENTATION Provider Action/FYI: PSR Action/FYI: Teamlet has identified patient by name and date of . Team: Myself, Vel Abraham Eva, Sue ? Last Office Visit:Visit date not found ? Next Office Visit: Visit date not found ? Last BP/Labs: Blood Pressure: Last 3 Encounter BP Readings: Date: BP: 09/03/2017 180/110 08/29/2017 130/88 05/21/2017 160/117[ismael BP Average[ Lipids: Cholesterol, Total (mg/dL) Date Value 01/20/2015 187 HDL Cholesterol (mg/dL) Date Value 01/20/2015 48 LDL Cholesterol (mg/dL) Date Value 01/20/2015 112 Triglyceride (mg/dL) Date Value 01/20/2015 137 HGB A1C: No results found for: HBA1C TSH: TSH (uU/mL) Date Value 08/19/2017 0.803 03/21/2015 1.340 ) Care Gap: HTN - Last BP NOT under 140/90 Plan: ? Type of appointment needed: Follow-up HTN next available with Provider pcp or [facility] APPLICATIONS MANAGER Labs, HM and Immunization: Health Maintenance Due: TETANUS due on 1989 INFLUENZA(1) due on 04/25/2017 Ana Biggs Cnc Service Technician Ana Biggs [facility] 10/12/2017 10:03 PM Signed Please call patient and assist in scheduling her CT scan. I spoke with Kassie and she states she forgot about her appointment because her grandmother has been sick and in and out of the hospital. She agreed to reschedule her appointment and is scheduled to see Dr. Mar 11/05/17. She states she got a letter in the mail stating her CT scan is covered and she wants to go ahead and schedule that as well. I will transfer to PSR so they can help her do this. The patient has been identified by name and date of : YES I have scheduled the patient for an appointment on 11/05/17 The patient will report to the lab prior to the visit. [facility] Documentation 10/08/2017 Opts out of [facility] No Appointments Scheduled Scheduled PCP Appt Ana Biggs Cma Gatito Villanueva Psr 10/12/2017 10:03 PM Signed First attempt/message left to schedule CT Allergies As of Date: 10/08/2017 Noted Allergy Reaction AMITRIPTYLINE HCL 06/12/2011 14 - Other: See Comments Comments: Woozy. Unconscious for 8h after 1 dose. ATENOLOL 06/14/2011 14 - Other: See Comments Comments: Dropped heart rate CATAPRES (CLONIDINE HCL) 06/12/2011 14 - Other: See Comments Comments: Blistering from clonidine patch, tolerates oral CONTRAST DYE 06/12/2011 2 - Rash Comments: Able to tolerate contrast if prophylaxed with diphenhydramine IMITREX (SUMATRIPTAN SUCCINATE) 03/18/2007 7 - Swelling 12 - Shortness of Breath INDERAL (PROPRANOLOL HCL) 03/18/2007 14 - Other: See Comments Comments: hypotension LATEX 08/06/2016 4 - Hives METOPROLOL 04/18/2011 14 - Other: See Comments Comments: hypotension NORVASC (AMLODIPINE BESYLATE) 03/18/2007 14 - Other: See Comments Comments: hypotension TESSALON (BENZONATATE) 07/09/2016 4 - Hives 12 - Shortness of Breath TORADOL (KETOROLAC TROMETHAMINE) 03/18/2007 4 - Hives 7 - Swelling 9 - Itching 12 - Shortness of Breath ULTRAM (TRAMADOL HCL) 05/21/2017 12 - Shortness of Breath Date Reviewed: 09/03/2017 Reviewed by: Elisha ([facility]) Lana - Fully Assessed Reason for Visit: PHMA/Care Gap Outreach [[id number]] Prescriptions as of 10/08/2017 Sig: AMOXICILLIN 400 MG-POTASSIUM * Give 10 mL orally twice daily* LISINOPRIL 20 MG-HYDROCHLOROT* Take 1 tablet by mouth twice * CARVEDILOL 25 MG TABLET Take 1 tablet by mouth twice * OMEPRAZOLE 20 MG CAPSULE,BRAD* Take 1 capsule by mouth once * JBNAUIROCU-GGGGKKIFTIFWU-TSFZ* Take 1 tablet by mouth twice * DIAZEPAM 5 MG TABLET Take 1 tablet by mouth at bed* ESTRADIOL 1 MG TABLET Take 1 tablet by mouth once d* CETIRIZINE 10 MG TABLET Take 1 tablet by mouth once d* FLUTICASONE 50 MCG/ACTUATION * Use 1 [place] in each nostril d* HYDROCODONE 5 MG-ACETAMINOPHE* Take 1 tablet by mouth every * NORTRIPTYLINE 50 MG CAPSULE Take 1 capsule by mouth daily* CLONIDINE HCL 0.1 MG TABLET Take 1 tablet by mouth twice * ALBUTEROL SULFATE HFA 90 MCG/* Inhale 2 Puffs as instructed * EXCEDRIN MIGRAINE ORAL Take by mouth. Problem List As Of Date 10/08/2017 Noted Resolved Essential hypertension [I10] 06/20/2016 More... Intractable migraine [G43.919] 06/20/2016 More... Other and unspecified ovarian cyst [N83.209] More... Anxiety disorder [F41.9] Chiari I malformation [G93.5] Ovarian cyst, complex [N83.299] 03/13/2015 Insomnia [G47.00] INVALID FOR* Iron deficiency [E61.1] INVALID FOR*03/13/2015 Intractable migraine without status migrainosus*INVALID FOR* Resistant hypertension [I10] INVALID FOR* Acute right ankle pain [M25.571] INVALID FOR* Neck pain [M54.2] INVALID FOR* Encounter Status:Closed by WANDA PRODUSER on 10/12/17 ALLERGIES ALLERGIES DATE TYPE / CODE NAME / CODE REACTION SEVERITY SOURCE Drug clonidine Other Unknown [place] 9 Allergy/221451776( HCl/V844296873(R [facility]) XNORM) Hospital Repository Drug propranolol Other Unknown [place] 9 Allergy/932017584( HCl/T946748447(R [facility]) XNORM) Hospital Repository Drug ketorolac Hives Unknown [place] 9 Allergy/340151134( tromethamine/F00 [facility]) 6339661(RXNORM) Hospital Repository Drug amlodipine Other Unknown Jeramy 9 Allergy/499034372( besylate/C246722 [facility]) 673(RXNORM) Hospital Repository Drug sumatriptan Shortness of Unknown Jeramy 9 Allergy/859074532( succinate/O03431 breath [facility]) 4045(RXNORM) Hospital Repository Drug divalproex Hives Unknown [place] 9 Allergy/586008734( sodium/B61608240 [facility]) 4(RXNORM) Hospital Repository Drug ibuprofen/H31205 Itching Unknown Jeramy 9 Allergy/565026066( 2377(RXNORM) [facility]) [facility] Rep[facility] Drug metoprolol/F0060 Other Unknown [place] 9 Allergy/411237275( 39367(RXNORM) [facility]) [facility] Drug sumatriptan/F006 Shortness of Unknown [place] 9 Allergy/693903886( 643914(RXNORM) breath [facility] Drug tramadol/B172186 Hives Unknown Jeramy 9 Allergy/534050281( 180(RXNORM) [facility] Rep[facility] Drug amitriptyline/F0 Other Unknown [place] 9 Allergy/187274079( 38283639(RXNORM) [facility] SNOMED CT) Hospital Repository Drug rizatriptan/F006 Shortness of Unknown [place] 9 Allergy/405997341( 032876(RXNORM) breath [facility] SNOMED CT) Hospital Repository Miscellaneous CONTRAST DYE Rash Unknown [place] 9 Allergy/094513402( [facility] SNOMED CT) Hospital Repository ENCOUNTERS ENCOUNTERS ADMIT/DISCHARGE ACCOUNT ADMITTING ENCOUNTER LOCATION SOURCE NUMBER CLASS 09/11/2018/ [id number] Emergency Jeramy [place] 9 7 [facility] ing:ED Repository 08/23/2018/ [id number] Emergency Jeramy [place] 8 5 [facility] ing:ED Repository 04/13/2018/ [id number] Emergency Jeramy [place] 8 3 [facility] ing:ED Repository 03/16/2018 [id number] Ambulatory [place] Gable 2 [facility] ing:ED Repository 02/23/2018/ [id number] Emergency [place] Jeramy 8 4 [facility] ing:ED Repository PAYERS PAYERS ENCOUNTER GUARANTOR PAYER SUBSCRIBER SOURCE 09/11/2018 KASSIE Myles Primary NOT GIVENUNK [place] [id number] Insurance:SELF PAY [place] Number: Effective Repository [phone]: (330) Date:2018-09-11 [phone] () 08/23/2018 KASSIE [id number] Primary NOT GIVENUNK Jeramy [place] Dr[place]ot Insurance:SELF PAY [address] [address]Mxi: (330) Number: Effective Repository [phone] () Date:2018-08-23 04/13/2018 KASSIE [id number] Primary NOT GIVENUNK Jeramy [place] DrLot Insurance:SELF PAY [address] [address]Rdo: (330) Number: Effective Repository [phone] () Date:2018-04-13 03/16/2018 Kassie Prado4400 Primary NOT GIVENUNK Jeramy [place] DrLot Insurance:SELF PAY [address] [facility] [address]Nzm: (330) Number: Effective Repository [phone] () Date:2018-03-16 02/23/2018 Kassie Prado4400 Primary NOT GIVENUNK Jeramy [place] Insurance:SELF PAY [facility] [address]Jjx: (330) Number: Effective Repository [phone] () Date:2018-02-23
== END 2018-09-11 21:54 | disposition home or self-care (01) ==
PROVIDERS: Emergency Provider Emergency Medicine; Family Provider Student in an Organized Health Care Education/Training Program; PCP Student in an Organized Health Care Education/Training Program
DX: R51 Headache (principal); F15.10 Other stimulant abuse, uncomplicated; I10 Essential (primary) hypertension; Z85.43 Personal history of malignant neoplasm of ovary; R05 Cough; Z72.0 Tobacco use
CPT/HCPCS: 99285; J7030

== ENCOUNTER 2018-09-30 11:10 | Emergency (ER) | payer SELFPAY ==
[2018-09-30 11:11] VITALS: PULSE 132; RESP 80; TEMP 37.2; O2SAT 96; BMI 23.8
[2018-09-30 11:18] VITALS: BP 190/155; PULSE 135; RESP 80; O2SAT 90
[2018-09-30] MEDS: LORazepam 2 MG/ML Syringe IV (11:51)
[2018-09-30] MEDS: DiphenhydrAMINE 50 MG/ML Syringe 25 MG IV (11:51)
[2018-09-30] MEDS: 0.9% Normal Saline 1,000 ML 1000 ML IV (11:51)
[2018-09-30] MEDS: Metoclopramide 10 MG/2 ML Vial IV (11:51)
[2018-09-30 12:00] VITALS: BP 132/81; PULSE 101; RESP 20; O2SAT 98
[2018-09-30 12:08] LABS: Absolute Neutrophil Count 10.4 X10^3/uL (2.0-7.7); Basophil# 0.05 X10^3/uL; Basophil% 0.4 % (0-1); Eosinophil# 0.38 X10^3/uL; Eosinophils% 2.7 % (0-5); Hematocrit 42.1 % (37-47); Hemoglobin 13.8 g/dl (12.0-15.0); Lymphocyte % 16.4 % (19-41); Mean Corp Hgb Conc 32.8 g/gl (32-36); Mean Corpuscular Hgb 29.7 pg (27.0-32.0); Mean Corpuscular Volume 90.5 fL (81-99); Mean Platelet Vol. 9.7 fl (6.2-12.0); Monocyte# 0.84 X10^3/uL; Neutrophil # 10.38 X10^3/uL (2.7-7.7); Neutrophil % 73.9 % (47-70); Platelet Count 298 K/mm3 (150-450); RBC Distribution Width CV 13.3 % (11.6-14.6); RBC Distribution Width SD 43.8 fl (35.1-43.9); Red Blood Count 4.65 M/mm3 (4.2-5.4)
[2018-09-30 12:10] LABS: POSITIVE COUNT NO; POSITIVE DIFFERENTIAL NO; POSITIVE MORPHOLOGY NO
[2018-09-30 12:18] LABS: Anion Gap 8 (5-15); BUN 13 mg/dL (7-18); BUN/Creat Ratio 16.7 RATIO (10-20); Calcium,Total 8.9 mg/dL (8.5-10.1); Chloride 106 mmol/L (98-107); Creatinine, Serum 0.78 mg/dL (0.55-1.02); EST Glomerular Filtration Rate 87 mL/min (>60); Est Glom Filt Rate - Afr Amer 105 mL/min (>60); Estimated Creatinine Clearance 72.35 ml/min; Glucose 101 mg/dL (74-106); Potassium 3.8 mmol/L (3.5-5.1); Sodium Level 143 mmol/L (136-145)
[2018-09-30 13:07] VITALS: BP 135/77; PULSE 93; RESP 20; O2SAT 100
[2018-09-30 13:43] LABS: Amphetamine Urine VISTA POSITIVE (<1000 ng/mL); Barbiturate Urine VISTA NEGATIVE (< 200 ng/mL); Benzodiazepine Urine VISTA NEGATIVE (< 200 ng/mL); Cocaine Urine VISTA NEGATIVE (< 300 ng/mL); Ecstacy Urine VISTA POSITIVE (< 500 ng/mL); Methadone Urine VISTA NEGATIVE (< 300 ng/mL); PCP Urine VISTA NEGATIVE (< 25 ng/mL); THC Urine VISTA NEGATIVE (< 50 ng/mL); Vista UDS pH Range 5
[2018-09-30 13:50] VITALS: BP 154/83; PULSE 75; RESP 16; O2SAT 94
--- NOTE | 2018-09-30 14:01 | ED.VISSUMM ---
- ER Visit Summary Date of Service: 09/30/18 Chief Complaint: [Hyperventilation] History of Present Illness: The patient is a 38 F [presents to the emergency department with police escort after being arrested at [facility]. Patient apparently was picked up on some warrants and initially appeared to behaving normally and was polite with officers. Once she was told she was being arrested she started to hyperventilate and shake. Officer states that other officers of seen her do this before when she has been arrested multiple times. Patient was found to have drug paraphernalia and she admits to smoking methamphetamines today. She denies feeling suicidal or homicidal. Patient has history of hypertension and anxiety.] Physical Examination: [HEENT-PERRLA, EOMI. Cranial nerves II through XII grossly intact. TMs clear. Mucous membranes moist. No adenopathy. Patient hyperventilating on exam and somewhat diaphoretic. Cardiovascular-regular rate and rhythm without murmur or ectopy Lungs-clear to auscultation, chest wall stable without crepitus or subcu emphysema Abdomen-normoactive bowel sounds, soft, nontender, no rebound or rigidity, no peritoneal signs. Extremities-intact ?4, normal range of motion, normal pulses, atraumatic] Test Results: [CBC with differential obtained showing a 14,000, hemoglobin 13.8, hematocrit 42, placed 298. Chemistries unremarkable. Toxicology screen positive for opiates as well as amphetamines and MDMA.] Emergency Department Course and Treatment: [Patient was complaining of a headache as well and has a history of migraines therefore she was given Reglan and Benadryl as well as a liter normal same fluid bolus. Patient was given Ativan 2 mg IV. Patient stopped hyperventilating and was feeling improved.] Treatment Plan: [Patient will be discharged under custody of police] Disposition: [Discharged] Impression: [Anxiety reaction Illicit drug use] This note was generated with [employer] dictation software. It may contain incorrect words, spelling, and punctuation that were not noted in review of the chart prior to signing ED Disposition - Plan for ED Patient: Referrals: Lukas Mar DO [Primary Care Provider] -
--- NOTE | 2018-09-30 14:05 | ED.DCSUM_ITS ---
- ER Visit Summary Date of Service: 09/30/18 Chief Complaint: [Hyperventilation] History of Present Illness: The patient is a 38 F [presents to the emergency department with police escort after being arrested at [facility]. Patient apparently was picked up on some warrants and initially appeared to behaving n ormally and was polite with officers. Once she was told she was being arrested she started to hyperventilate and shake. Officer states that other officers of seen her do this before when she has been arrested multiple times. Patient was found to have drug paraphernalia and she admits to smoking methamphetamines today. She denies feeling suicidal or homicidal. Patient has history of hypertension and anxiety.] Physical Examination: [HEENT-PERRLA, EOMI. Cranial nerves II through XII grossly intact. TMs clear. Mucous membranes moist. No adenopathy. Patient hyperventilating on exam and somewhat diaphoretic. Cardiovascular-regular rate and rhythm without murmur or ectopy Lungs-clear to auscultation, chest wall stable without crepitus or subcu emphysema Abdomen-normoactive bowel sounds, soft, nontender, no rebound or rigidity, no peritoneal signs. Extremities-intact ?4, normal range of motion, normal pulses, atraumatic] Test Results: [CBC with differential obtained showing a 14,000, hemoglobin 13.8, hematocrit 42, placed 298. Chemistries unremarkable. Toxicology screen positive for opiates as well as amphetamines and MDMA.] Emergency Department Course and Treatment: [Patient was complaining of a headache as well and has a history of migraines therefore she was given Reglan and Benadryl as well as a liter normal same fluid bolus. Patient was given Ativan 2 mg IV. Patient stopped hyperventilating and was feeling improved.] Treatment Plan: [Patient will be discharged under custody of police] Disposition: [Discharged] Impression: [Anxiety reaction Illicit drug use] This note was generated with [employer] dictation software. It may contain incorrect words, spelling, and punctuation that were not noted in review of the chart prior to signing ED Disposition - Plan for ED Patient: Referrals: Lukas Mar DO [Primary Care Provider] -
--- NOTE | 2018-09-30 14:05 | ED.DEP ---
ED Disposition - Plan for ED Patient: Instructions: ED Panic Attack, ED Drug Abuse General, ED Hyperventilation Syndrome Referrals: Lukas Mar DO [Primary Care Provider] - As Needed
[2018-09-30 14:12] VITALS: BP 154/83; PULSE 80; RESP 17; O2SAT 99
== END 2018-09-30 14:13 ==
LOC: ED 13:25
PROVIDERS: Emergency Provider Emergency Medicine; Family Provider Student in an Organized Health Care Education/Training Program; PCP Student in an Organized Health Care Education/Training Program
DX: F41.9 Anxiety disorder, unspecified (principal); F19.10 Other psychoactive substance abuse, uncomplicated; I10 Essential (primary) hypertension; Z72.0 Tobacco use; Z79.899 Other long term (current) drug therapy
CPT/HCPCS: 80048; 80307; 80320; 85025; 99285; J7030; P9612; A4216; G0480

== ENCOUNTER 2018-10-31 13:27 | Inpatient (IN) | payer SELFPAY ==
[2018-10-31] VITALS (8 sets, daily range): BP systolic 134–195; BP diastolic 86–109; PULSE 82–132; RESP 14–20; TEMP 36.8–37.1; O2SAT 96–100; BMI 22.1; BMI 22.4
--- NOTE | 2018-10-31 14:12 | CT_ITS ---
STUDY: CT ABDOMEN AND PELVIS WITHOUT CONTRAST REASON FOR EXAM: Female, 38 years old. ABD PAIN 2 RADIATION DOSAGE (If Supplied By Facility): CTDIvol = ( 6.06 ) mGy, DLP = ( 624.24 ) mGycm TECHNIQUE: Transaxial images were obtained from the dome of the diaphragm to the symphysis pubis with oral contrast, and without intravenous contrast. Sagittal and coronal images were reconstructed. Individualized dose optimization techniques were used for this CT. COMPARISON: None. FINDINGS: The visualized lung bases are unremarkable. The visualized portions of the heart are within normal limits. Normal liver. There are surgical clips in the gallbladder fossa consistent with a prior cholecystectomy. There is a dilated common body measuring 1.3 cm. This is greater than expected status post cholecystectomy patient of this age. Correlate with liver function tests. Normal spleen. Normal pancreas. Normal bilateral adrenal glands. Normal right kidney. Normal left kidney. No definite renal or ureteral stones are seen. There is no hydronephrosis on either side. Normal visualized stomach. Normal small intestine. Moderate to marked fecal retention throughout the colon. There are surgical clips in the region of the appendix consistent with a prior appendectomy. Normal abdominal aorta. Normal inferior vena cava. Normal retroperitoneum. Moderately distended urinary bladder. There is absence of the uterus consistent with a prior hysterectomy. Normal abdominal wall. Normal osseous structures. CT/Abdomen/Pel W ORAL Cont Only IMPRESSION: Dilated common bile. Recommend correlation with liver function test. Moderate to marked fecal retention. Electronically Signed: Ricardo You MD at 16:34 EST , Service support ,
--- NOTE | 2018-10-31 14:14 | ED.VISSUMM ---
- ER Visit Summary Date of Service: 10/31/18 Chief Complaint: Abdominal pain, vomiting History of Present Illness: The patient is a 38 F brought in from senior living for evaluation of abdominal pain vomiting since yesterday. States 5 episodes today with's streaks of blood. History of cholecystectomy, appendectomy and total hysterectomy. States had uterine cancer 2 years ago with significant surgeries performed here by multiple surgeons involved including Dr. Valdivia and gynecology. Denies history of bowel obstructions. No history of pancreatitis. She has been incarcerated for the last month, history of meth use, no use recently. No urinary symptoms. History of IV dye allergy. Physical Examination: General: Alert and oriented ?3, unable to sit still, however cooperative, answering questions HEENT: Normocephalic, atraumatic. Moist mucosa membranes Neck: supple, nontender. Cardiovascular: Regular tachycardic rate 102 and rhythm, no murmurs Respiratory: Normal breath sounds, symmetric, no distress Abdomen: Soft, right mid to side tenderness without guarding or rebound nondistended Extremities: Nontender, no edema, pulses intact ?4 Neuro: no focal neurological deficits. Test Results: White count 13.7, 14.4 creatinine 0.6, lipase 112, liver enzymes normal. Urine noted [address] abdomen pelvis oral contrast dilated common bile duct 1.3 cm. Emergency Department Course and Treatment: Patient tachycardic on arrival was given IV fluids. She reports mild blood in vomit, likely gastritis symptoms. She given Protonix Zofran morphine, no emesis since then. Fluids did improve her heart rate. She has a white count 13.7 CAT scan with dilated common bile duct normal lipase and LFTs. I discussed with covering surgeon Dr. Santos who evaluated in the ED. She will be admitted under his service for further management. Additional morphine given on repeat exam. Treatment Plan: [] Disposition: Admission Impression: 1. Abdominal pain 2. Nausea and vomiting 3. Dilated common bile duct This note was generated with [employer] dictation software. It may contain incorrect words, spelling, and punctuation that were not noted in review of the chart prior to signing ED Disposition - Plan for ED Patient: Disposition: Acute Care [facility] Diagnosis: Abdominal pain, Nausea and vomiting, Common bile duct dilatation Referrals: Lukas Mar DO [Primary Care Provider] -
[2018-10-31 14:36] LABS: Mucous, Urine 0 SEEN /hpf (<or=2+); Red Blood Cells-Urine 0 SEEN /hpf (0-5); White Blood Cells 0 SEEN /hpf (0-5)
[2018-10-31 14:37] LABS: Color, Urine Yellow (Yellow); Glucose, Dipstick Normal (Normal); Ketone-Dipstick Negative (Negative); Leukocyte Esterase-Dipstick Negative /ul (Negative); Nitrite-Dipstick Negative (Negative); Occult Blood-Urine 10 /ul (Negative); Protein-Dipstick Negative (Negative); Urine Bilirubin Dipstick Negative (Negative); Urine Clarity Clear (Clear); Urine Urobilinogen Normal (Normal); Urine pH 6.5 (5.0 - 8.0)
[2018-10-31 14:44] LABS: Bacteria RARE /hpf (None Seen); Squamous Epithelial Cells - UA 0-5 SEEN /hpf (5-10)
[2018-10-31 14:47] LABS: Absolute Lymphocyte Count 1.35 X10^3/ul (0.83-4.51); Absolute Neutrophil Count 11.1 X10^3/uL (2.0-7.7); Basophil# 0.03 X10^3/uL; Basophil% 0.2 % (0-1); Eosinophil# 0.28 X10^3/uL; Hematocrit 45.3 % (37-47); Hemoglobin 14.4 g/dl (12.0-15.0); Lymphocyte # 1.35 X10^3/ul (4.0); Lymphocyte % 9.9 % (19-41); Mean Corp Hgb Conc 31.8 g/gl (32-36); Mean Corpuscular Hgb 29.1 pg (27.0-32.0); Mean Corpuscular Volume 91.5 fL (81-99); Mean Platelet Vol. 9.7 fl (6.2-12.0); Monocyte# 0.84 X10^3/uL; Monocyte% 6.1 % (0-10); Neutrophil # 11.12 X10^3/uL (2.7-7.7); Neutrophil % 81.5 % (47-70); POSITIVE COUNT NO; POSITIVE DIFFERENTIAL NO; POSITIVE MORPHOLOGY NO; Platelet Count 320 K/mm3 (150-450); RBC Distribution Width CV 13.6 % (11.6-14.6); RBC Distribution Width SD 44.3 fl (35.1-43.9); Red Blood Count 4.95 M/mm3 (4.2-5.4); White Blood Count 13.7 K/mm3 (4.4-11.0)
[2018-10-31] MEDS: Ondansetron 4 MG/2 ML Vial IV (14:48)
[2018-10-31] MEDS: 0.9% Normal Saline 1,000 ML 1000 ML IV (14:48)
[2018-10-31] MEDS: Morphine 4 MG/ML Syringe IV ×2 (14:48→17:16)
[2018-10-31 15:02] LABS: ALB/GLOB Ratio 1.1 RATIO (0.9-2.4); AST(SGOT) 10 U/L (15-37); Alanine Aminotransfer ALT/SGPT 15 U/L (13-56); Albumin, Serum 4.1 g/dL (3.2-5.0); Alkaline Phosphatase 105 U/L (45-117); Anion Gap 7 (5-15); BUN 11 mg/dL (7-18); BUN/Creat Ratio 17.7 RATIO (10-20); Calcium,Total 9.1 mg/dL (8.5-10.1); Chloride 104 mmol/L (98-107); Creatinine, Serum 0.62 mg/dL (0.55-1.02); EST Glomerular Filtration Rate 113 mL/min (>60); Est Glom Filt Rate - Afr Amer 136 mL/min (>60); Estimated Creatinine Clearance 91.02 ml/min; Globulin 3.9 g/dL (2.2-4.2); Glucose 92 mg/dL (74-106); Lipase 112 U/L (73-393); Sodium Level 140 mmol/L (136-145)
--- NOTE | 2018-10-31 15:05 | ED.RN ---
PT STATES HAS NOT BEEN TAKING ANY MEDICATIONS SINCE IN [facility]. STATES ALL PRESCRIPTIONS WERE
[2018-10-31] MEDS: 0.9% Normal Saline 1,000 ML 150 ML IV (16:41)
--- NOTE | 2018-10-31 17:53 | NURSING ---
DR PATRICIO IN ROOM
--- NOTE | 2018-10-31 18:02 | NURSING ---
MED SURG SHENG MOODY PAIN, VOMITING, DILATED CBD
--- NOTE | 2018-10-31 18:13 | PCM.HP.STD ---
Problem List (1) Abdominal pain Status: Acute Qualifiers: Abdominal location: right upper quadrant Qualified Code(s): R10.11 - Right upper quadrant pain (2) Common bile duct dilatation Status: Acute (3) Nausea and vomiting Status: Acute Qualifiers: Vomiting type: unspecified Vomiting Intractability: unspecified Qualified Code(s): R11.2 - Nausea with vomiting, unspecified History of Present Illness Date of Admission: 10/31/18 The patient is a 38 year old F presents from correction with right upper quadrant and right flank pain and nausea and vomiting. The patient reports that she has been having intermittent right-sided pain for about a week. He says yesterday she started having vomiting. She says today the vomiting had bloody streaks in it. She says this happens intermittently. She says she will be fine and then all of a sudden she will have abdominal pain which will double her over and she will vomit. She reports she had a normal bowel movement this morning. She has no fevers or chills. She has no dysuria. No cough. Past Medical History Allergies adhesive Allergy (Verified 10/31/18 13:32) Other BURN divalproex sodium [From Depakote] Allergy (Verified 10/31/18 13:32) Hives ibuprofen Allergy (Verified 10/31/18 13:32) Itching ketorolac tromethamine [From Toradol] Allergy (Verified 10/31/18 13:32) Hives latex Allergy (Verified 10/31/18 13:32) Other BURN rizatriptan [From Maxalt] Allergy (Verified 10/31/18 13:32) Shortness of breath sumatriptan [From Imitrex] Allergy (Verified 10/31/18 13:32) Shortness of breath sumatriptan succinate [From Imitrex] Allergy (Verified 10/31/18 13:32) Shortness of breath tramadol [From Ultram] Allergy (Verified 10/31/18 13:32) Hives amitriptyline Adverse Reaction (Verified 10/31/18 13:32) Other amlodipine besylate [From Norvasc] Adverse Reaction (Verified 10/31/18 13:32) Other clonidine HCl [From Catapres] Adverse Reaction (Verified 10/31/18 13:32) Other metoprolol Adverse Reaction (Verified 10/31/18 13:32) Other propranolol HCl [From Inderal LA] Adverse Reaction (Verified 10/31/18 13:32) Other CONTRAST DYE Allergy (Uncoded 10/31/18 13:32) Rash Home Medications: Ambulatory Orders Medication Instructions Recorded Albuterol Inhaler [Ventolin Hfa 2 puff INHALATION Q4H PRN PRN 10/31/18 (SP)] Carvedilol 12.5 mg BID 10/31/18 Cetirizine HCl [Zyrtec] 10 mg PO DAILY 10/31/18 Clonidine HCl 0.1 mg BID 10/31/18 Ferrous Sulfate DAILY 10/31/18 Fioricet 10/31/18 Lisinopril [Zestril] 10 mg PO DAILY 10/31/18 Lorazepam [Ativan] 2 mg PO TID PRN PRN 10/31/18 Omeprazole 20 mg DAILY 10/31/18 Potassium Chloride DAILY 10/31/18 Surgical History: - - Complicated hysterectomy which required transfusion and several surgeons, appendectomy, cholecystectomy Smoking Status: Current every day smoker - *Family History Maternal History Items: No pertinent history Review of Systems Constitutional: Reports: Anorexia. Denies: Chills, Fever HEENT: Denies: Difficulty Swallowing Cardiovascular: Denies: Chest Pain Respiratory: Denies: Cough Gastrointestinal: Reports: Abdominal Pain, Hematemesis, Nausea, Vomiting. Denies: Diarrhea, Hematochezia, Melena Genitourinary: Denies: Dysuria, Incontinence Musculoskeletal: Denies: Joint Tenderness Skin: Denies: Dryness, Jaundice Neurological: Reports: Headaches. Denies: Balance problems Psychiatric: Reports: Anxiety, Depression Hematologic/ Lymphatic: Denies: Anemia VTE Information - Inpt Only VTE Present on Admission: No VTE Mechan Device Prophylaxis: SCD's - Physical Exam General: Alert, Oriented x3, Cooperative HEENT: PERRLA Neck: No JVD Lungs: Clear to auscultation, Normal air movement Cardiovascular: Regular rate, Regular Rhythm Abdomen: Soft, Non-Distended, Tender - Mild tenderness in the right upper quadrant. Most of her tenderness is described in the right flank but is not worsened with palpation. Extremities: No cyanosis Skin: No rashes Musculoskeletal: No Muscle Wasting Neurological: Cranial nerves II-XII grossly intact Psych/Mental Status: Normal Affect Vital Signs Temp Pulse Resp BP Pulse Ox 98.8 F 89 18 195/95 H 99 10/31/18 17:00 10/31/18 17:00 10/31/18 17:00 10/31/18 17:00 10/31/18 17:00 Oxygen Delivery Method Room Air Weight: 117 lb Body Mass Index (BMI) 22.1 Laboratory Tests Past 24 Hrs 10/31/18 10/31/18 10/31/18 13:40 14:35 14:35 WBC 13.7 H RBC 4.95 Hgb 14.4 Hct 45.3 MCV 91.5 MCH 29.1 MCHC 31.8 L RDW 13.6 RDW Differential 44.3 H Plt Count 320 MPV 9.7 Immature Gran % (Auto) 0.300 Neut % (Auto) 81.5 H Lymph % (Auto) 9.9 L [place] % (Auto) 6.1 Eos % (Auto) 2.0 Baso % (Auto) 0.2 Absolute Neuts (auto) 11.1 H Absolute Lymphs (auto) 1.35 Total Counted Not Reportable Sodium 140 Potassium 4.0 Chloride 104 Carbon Dioxide 29.0 Anion Gap 7 BUN 11 Creatinine 0.62 Estim Creat Clear Calc 91.02 Est GFR (MDRD) Af Amer 136 Est GFR (MDRD) Non-Af 113 BUN/Creatinine Ratio 17.7 Glucose 92 Calcium 9.1 Total Bilirubin 0.40 AST 10 L ALT 15 Alkaline Phosphatase 105 Total Protein 8.0 Albumin 4.1 Globulin 3.9 Albumin/Globulin Ratio 1.1 Lipase 112 Urine Color Yellow Urine Clarity Clear Urine pH 6.5 Ur Specific [place] 1.010 Urine Protein Negative Urine Glucose (UA) Normal Urine Ketones Negative Urine Occult Blood 10 H Urine Nitrite Negative Urine Bilirubin Negative Urine Urobilinogen Normal Ur Leukocyte Esterase Negative Urine RBC 0 SEEN Urine WBC 0 SEEN Ur Squamous Epith Cells 0-5 SEEN Urine Bacteria RARE Urine Mucus 0 SEEN Clinical Impression(s) from Imaging Studies Abdomen CT 10/31/18 14:12 IMPRESSION: Dilated common bile. Recommend correlation with liver function test. Moderate to marked fecal retention. Electronically Signed: Ricardo You MD at 16:34 EST , Service support , Assessment/Plan All Active Problems Abdominal pain (Acute) Nausea and vomiting (Acute) Common bile duct dilatation (Acute) 38-year-old female with right-sided abdominal pain and dilated common bile duct 1. Patient was tachycardic with an elevated white count when she came into the hospital. She complains of right-sided abdominal pain as well as right flank pain. UA was normal with no indication of urinary tract infection or kidney stone. Patient had a CT scan which showed no dilated bowel. The patient does have a dilated common bile duct but her LFTs were completely normal. Patient also has large amount of stool in the right colon. 2. I will admit the patient for observation and start her on IV fluids and a clear liquid diet. I will recheck labs in the morning. I will also give her an enema as well as magnesium citrate to resolve constipation. Patient had bloody streaks in her vomitus and I will start her on a PPI. If her LFTs increase in the morning and will take her for ERCP on Friday and start her on antibiotics. I will observe her off antibiotics to see what her white count does. Patient is also having a migraine. This will be treated. Patient is also hypertensive. Denys Santos MD Pager: [facility] [address] [place] [address], [address] [place] [address] Office:
--- NOTE | 2018-10-31 18:19 | HP.PCM_ITS ---
Problem List (1) Abdominal pain Status: Acute Qualifiers: Abdominal location: right upper quadrant Qualified Code(s): R10.11 - Right upper quadrant pain (2) Common bile duct dilatation Status: Acute (3) Nausea and vomiting Status: Acute Qualifiers: Vomiting type: unspecified Vomiting Intractability: unspecified Qualified Code(s): R11.2 - Nausea with vomiting, unspecified History of Present Illness Date of Admission: 10/31/18 The patient is a 38 year old F presents from longterm with right upper quadrant and right flank pain and nausea and vomiting. The patient reports that she has been having intermittent right-sided pain for about a week. He says yesterday she started having vomiting. She says today the vomiting had bloody streaks in it. She says this happens intermittently. She says she will be fine and then all of a sudden she will have abdominal pain which will double her over and she will vomit. She reports she had a normal bowel movement this morning. She has no fevers or chills. She has no dysuria. No cough. Past Medical History Allergies adhesive Allergy (Verified 10/31/18 13:32) Other BURN divalproex sodium [From Depakote] Allergy (Verified 10/31/18 13:32) Hives ibuprofen Allergy (Verified 10/31/18 13:32) Itching ketorolac tromethamine [From Toradol] Allergy (Verified 10/31/18 13:32) Hives latex Allergy (Verified 10/31/18 13:32) Other BURN rizatriptan [From Maxalt] Allergy (Verified 10/31/18 13:32) Shortness of breath sumatriptan [From Imitrex] Allergy (Verified 10/31/18 13:32) Shortness of breath sumatriptan succinate [From Imitrex] Allergy (Verified 10/31/18 13:32) Shortness of breath tramadol [From Ultram] Allergy (Verified 10/31/18 13:32) Hives amitriptyline Adverse Reaction (Verified 10/31/18 13:32) Other amlodipine besylate [From Norvasc] Adverse Reaction (Verified 10/31/18 13:32) Other clonidine HCl [From Catapres] Adverse Reaction (Verified 10/31/18 13:32) Other metoprolol Adverse Reaction (Verified 10/31/18 13:32) Other propranolol HCl [From Inderal LA] Adverse Reaction (Verified 10/31/18 13:32) Other CONTRAST DYE Allergy (Uncoded 10/31/18 13:32) Rash Home Medications: Ambulatory Orders Medication Instructions Recorded Albuterol Inhaler [Ventolin Hfa 2 puff INHALATION Q4H PRN PRN 10/31/18 (SP)] Carvedilol 12.5 mg BID 10/31/18 Cetirizine HCl [Zyrtec] 10 mg PO DAILY 10/31/18 Clonidine HCl 0.1 mg BID 10/31/18 Ferrous Sulfate DAILY 10/31/18 Fioricet 10/31/18 Lisinopril [Zestril] 10 mg PO DAILY 10/31/18 Lorazepam [Ativan] 2 mg PO TID PRN PRN 10/31/18 Omeprazole 20 mg DAILY 10/31/18 Potassium Chloride DAILY 10/31/18 Surgical History: - - Complicated hysterectomy which required transfusion and several surgeons, appendectomy, cholecystectomy Smoking Status: Current every day smoker - *Family History Maternal History Items: No pertinent history Review of Systems Constitutional: Reports: Anorexia. Denies: Chills, Fever HEENT: Denies: Difficulty Swallowing Cardiovascular: Denies: Chest Pain Respiratory: Denies: Cough Gastrointestinal: Reports: Abdominal Pain, Hematemesis, Nausea, Vomiting. Denies: Diarrhea, Hematochezia, Melena Genitourinary: Denies: Dysuria, Incontinence Musculoskeletal: Denies: Joint Tenderness Skin: Denies: Dryness, Jaundice Neurological: Reports: Headaches. Denies: Balance problems Psychiatric: Reports: Anxiety, Depression Hematologic/ Lymphatic: Denies: Anemia VTE Information - Inpt Only VTE Present on Admission: No VTE Mechan Device Prophylaxis: SCD's - Physical Exam General: Alert, Oriented x3, Cooperative HEENT: PERRLA Neck: No JVD Lungs: Clear to auscultation, Normal air movement Cardiovascular: Regular rate, Regular Rhythm Abdomen: Soft, Non-Distended, Tender - Mild tenderness in the right upper quadrant. Most of her tenderness is described in the right flank but is not worsened with palpation. Extremities: No cyanosis Skin: No rashes Musculoskeletal: No Muscle Wasting Neurological: Cranial nerves II-XII grossly intact Psych/Mental Status: Normal Affect Vital Signs Temp Pulse Resp BP Pulse Ox 98.8 F 89 18 195/95 H 99 10/31/18 17:00 10/31/18 17:00 10/31/18 17:00 10/31/18 17:00 10/31/18 17:00 Oxygen Delivery Method Room Air Weight: 117 lb Body Mass Index (BMI) 22.1 Laboratory Tests Past 24 Hrs 10/31/18 10/31/18 10/31/18 13:40 14:35 14:35 WBC 13.7 H RBC 4.95 Hgb 14.4 Hct 45.3 MCV 91.5 MCH 29.1 MCHC 31.8 L RDW 13.6 RDW Differential 44.3 H Plt Count 320 MPV 9.7 Immature Gran % (Auto) 0.300 Neut % (Auto) 81.5 H Lymph % (Auto) 9.9 L [place] % (Auto) 6.1 Eos % (Auto) 2.0 Baso % (Auto) 0.2 Absolute Neuts (auto) 11.1 H Absolute Lymphs (auto) 1.35 Total Counted Not Reportable Sodium 140 Potassium 4.0 Chloride 104 Carbon Dioxide 29.0 Anion Gap 7 BUN 11 Creatinine 0.62 Estim Creat Clear Calc 91.02 Est GFR (MDRD) Af Amer 136 Est GFR (MDRD) Non-Af 113 BUN/Creatinine Ratio 17.7 Glucose 92 Calcium 9.1 Total Bilirubin 0.40 AST 10 L ALT 15 Alkaline Phosphatase 105 Total Protein 8.0 Albumin 4.1 Globulin 3.9 Albumin/Globulin Ratio 1.1 Lipase 112 Urine Color Yellow Urine Clarity Clear Urine pH 6.5 Ur Specific [place] 1.010 Urine Protein Negative Urine Glucose (UA) Normal Urine Ketones Negative Urine Occult Blood 10 H Urine Nitrite Negative Urine Bilirubin Negative Urine Urobilinogen Normal Ur Leukocyte Esterase Negative Urine RBC 0 SEEN Urine WBC 0 SEEN Ur Squamous Epith Cells 0-5 SEEN Urine Bacteria RARE Urine Mucus 0 SEEN Clinical Impression(s) from Imaging Studies Abdomen CT 10/31/18 14:12 IMPRESSION: Dilated common bile. Recommend correlation with liver function test. Moderate to marked fecal retention. Electronically Signed: Ricardo You MD at 16:34 EST , Service support , Assessment/Plan All Active Problems Abdominal pain (Acute) Nausea and vomiting (Acute) Common bile duct dilatation (Acute) 38-year-old female with right-sided abdominal pain and dilated common bile duct 1. Patient was tachycardic with an elevated white count when she came into the hospital. She complains of right-sided abdominal pain as well as right flank pain. UA was normal with no indication of urinary tract infection or kidney stone. Patient had a CT scan which showed no dilated bowel. The patient does have a dilated common bile duct but her LFTs were completely normal. Patient also has large amount of stool in the right colon. 2. I will admit the patient for observation and start her on IV fluids and a clear liquid diet. I will recheck labs in the morning. I will also give her an enema as well as magnesium citrate to resolve constipation. Patient had bloody streaks in her vomitus and I will start her on a PPI. If her LFTs increase in the morning and will take her for ERCP on Friday and start her on antibiotics. I will observe her off antibiotics to see what her white count does. Patient is also having a migraine. This will be treated. Patient is also hypertensive. Denys Santos MD Pager: [facility] [address] [place] [address], [address] [place] [address] Office:
[2018-10-31] MEDS: Morphine 2 MG/ML Syringe IV ×2 (19:10→21:13)
[2018-10-31] MEDS: Lactated Ringers 1,000 ML 125 ML IV (19:10)
[2018-10-31] MEDS: hydrALAZINE 20 MG/ML Vial 10 MG IV (19:14)
[2018-10-31] MEDS: Magnesium Citrate 300 ML PO (20:03)
[2018-10-31] MEDS: Acetaminophen 325 MG Tablet 650 MG PO (20:05)
[2018-10-31] MEDS: LORazepam 1 MG Tablet PO (21:12)
[2018-10-31] MEDS: Carvedilol 12.5 MG Tablet PO (21:12)
[2018-10-31] MEDS: Ensure Clear 120 ML Liquid PO (21:12)
[2018-10-31] MEDS: 0.9% NaCl Peripheral Flush Adult/Peds IV (21:13)
[2018-11-01] VITALS (7 sets, daily range): BP systolic 132–182; BP diastolic 80–100; PULSE 71–93; RESP 18–20; TEMP 36.6–37; O2SAT 97–100
[2018-11-01] MEDS: Morphine 2 MG/ML Syringe IV ×3 (01:05→14:19)
[2018-11-01] MEDS: Ondansetron 4 MG/2 ML Vial IV ×3 (01:05→19:34)
[2018-11-01] MEDS: 0.9% NaCl Peripheral Flush Adult/Peds IV ×4 (01:06→19:34)
[2018-11-01] MEDS: Lactated Ringers 1,000 ML 125 ML IV ×3 (04:00→19:33)
[2018-11-01] MEDS: Acetaminophen 325 MG Tablet 650 MG PO ×2 (05:37→14:19)
[2018-11-01] MEDS: LORazepam 1 MG Tablet PO ×2 (06:09→14:19)
[2018-11-01 07:00] LABS: Absolute Lymphocyte Count 1.44 X10^3/ul (0.83-4.51); Absolute Neutrophil Count 6.8 X10^3/uL (2.0-7.7); Basophil# 0.05 X10^3/uL; Basophil% 0.5 % (0-1); Eosinophil# 0.27 X10^3/uL; Eosinophils% 2.8 % (0-5); Hematocrit 37.8 % (37-47); Hemoglobin 12.4 g/dl (12.0-15.0); Lymphocyte # 1.44 X10^3/ul (4.0); Lymphocyte % 14.9 % (19-41); Mean Corp Hgb Conc 32.8 g/gl (32-36); Mean Corpuscular Hgb 30.2 pg (27.0-32.0); Mean Platelet Vol. 10.2 fl (6.2-12.0); Monocyte# 1.09 X10^3/uL; Monocyte% 11.2 % (0-10); Neutrophil # 6.81 X10^3/uL (2.7-7.7); Neutrophil % 70.3 % (47-70); Platelet Count 301 K/mm3 (150-450); RBC Distribution Width CV 13.6 % (11.6-14.6); RBC Distribution Width SD 45.2 fl (35.1-43.9); Red Blood Count 4.11 M/mm3 (4.2-5.4); White Blood Count 9.7 K/mm3 (4.4-11.0)
[2018-11-01 07:01] LABS: POSITIVE COUNT NO; POSITIVE DIFFERENTIAL NO; POSITIVE MORPHOLOGY NO
[2018-11-01 07:18] LABS: AST(SGOT) 1020 U/L (15-37); Alanine Aminotransfer ALT/SGPT 877 U/L (13-56); Albumin, Serum 3.2 g/dL (3.2-5.0); Alkaline Phosphatase 176 U/L (45-117); Anion Gap 6 (5-15); BUN 7 mg/dL (7-18); BUN/Creat Ratio 13.1 RATIO (10-20); Bilirubin, Direct 0.23 mg/dL (0.00-0.30); Calcium,Total 8.5 mg/dL (8.5-10.1); Chloride 108 mmol/L (98-107); Creatinine, Serum 0.53 mg/dL (0.55-1.02); EST Glomerular Filtration Rate 134 mL/min (>60); Est Glom Filt Rate - Afr Amer 163 mL/min (>60); Estimated Creatinine Clearance 106.47 ml/min; Globulin 3.3 g/dL (2.2-4.2); Glucose 81 mg/dL (74-106); Lipase 152 U/L (73-393); Potassium 4.2 mmol/L (3.5-5.1); Protein, Total 6.5 g/dL (6.4-8.2); Sodium Level 142 mmol/L (136-145)
[2018-11-01] MEDS: Morphine 4 MG/ML Syringe IV ×2 (09:02→11:54)
[2018-11-01] MEDS: Carvedilol 12.5 MG Tablet PO ×2 (09:08→21:21)
[2018-11-01] MEDS: Lisinopril 10 MG Tablet PO (09:08)
--- NOTE | 2018-11-01 09:21 | PCM.PN.SRG ---
Patient Problems: Active and Suspected Problems Abdominal pain (Acute) Nausea and vomiting (Acute) Common bile duct dilatation (Acute) Subjective: Patient is still complaining of intermittent cramping right upper quadrant pain. She did vomit up some more strands of blood this morning. - Physical Exam General: Alert, Oriented x3, Cooperative Lungs: Normal air movement Cardiovascular: Regular rate, Regular Rhythm Abdomen: Soft, Non-Distended, Tender Musculoskeletal: No Muscle Wasting Neurological: Cranial nerves II-XII grossly intact Psych/Mental Status: Normal Affect Vital Signs Temp Pulse Resp BP Pulse Ox 98.1 F 80 18 132/83 H 97 11/01/18 04:31 11/01/18 04:31 11/01/18 04:31 11/01/18 04:31 11/01/18 04:31 Oxygen Delivery Method Room Air Weight: 121 lb Body Mass Index (BMI) 22.4 Intake and Output for Last 24 Hours 10/30/18 10/31/18 11/02/18 23:59 23:59 00:59 Intake Total 1328 / 1328 1230 / 1230 Output Total 400 / 400 700 / 700 Balance 928 / 928 530 / 530 Laboratory Tests Past 24 Hrs 10/31/18 10/31/18 10/31/18 13:40 14:35 14:35 WBC 13.7 H RBC 4.95 Hgb 14.4 Hct 45.3 MCV 91.5 MCH 29.1 MCHC 31.8 L RDW 13.6 RDW Differential 44.3 H Plt Count 320 MPV 9.7 Immature Gran % (Auto) 0.300 Neut % (Auto) 81.5 H Lymph % (Auto) 9.9 L [place] % (Auto) 6.1 Eos % (Auto) 2.0 Baso % (Auto) 0.2 Absolute Neuts (auto) 11.1 H Absolute Lymphs (auto) 1.35 Total Counted Not Reportable Sodium 140 Potassium 4.0 Chloride 104 Carbon Dioxide 29.0 Anion Gap 7 BUN 11 Creatinine 0.62 Estim Creat Clear Calc 91.02 Est GFR (MDRD) Af Amer 136 Est GFR (MDRD) Non-Af 113 BUN/Creatinine Ratio 17.7 Glucose 92 Calcium 9.1 Total Bilirubin 0.40 Direct Bilirubin AST 10 L ALT 15 Alkaline Phosphatase 105 Total Protein 8.0 Albumin 4.1 Globulin 3.9 Albumin/Globulin Ratio 1.1 Lipase 112 Urine Color Yellow Urine Clarity Clear Urine pH 6.5 Ur Specific [place] 1.010 Urine Protein Negative Urine Glucose (UA) Normal Urine Ketones Negative Urine Occult Blood 10 H Urine Nitrite Negative Urine Bilirubin Negative Urine Urobilinogen Normal Ur Leukocyte Esterase Negative Urine RBC 0 SEEN Urine WBC 0 SEEN Ur Squamous Epith Cells 0-5 SEEN Urine Bacteria RARE Urine Mucus 0 SEEN Hepatitis A IgM Ab Hep Bs Antigen Hep B Core IgM Ab Hepatitis C Ab (EIA) 11/01/18 11/01/18 11/01/18 06:05 06:05 08:00 WBC 9.7 RBC 4.11 L Hgb 12.4 Hct 37.8 MCV 92.0 MCH 30.2 MCHC 32.8 RDW 13.6 RDW Differential 45.2 H Plt Count 301 MPV 10.2 Immature Gran % (Auto) 0.300 Neut % (Auto) 70.3 H Lymph % (Auto) 14.9 L [place] % (Auto) 11.2 H Eos % (Auto) 2.8 Baso % (Auto) 0.5 Absolute Neuts (auto) 6.8 Absolute Lymphs (auto) 1.44 Total Counted Not Reportable Sodium 142 Potassium 4.2 Chloride 108 H Carbon Dioxide 28.0 Anion Gap 6 BUN 7 Creatinine 0.53 L Estim Creat Clear Calc 106.47 Est GFR (MDRD) Af Amer 163 Est GFR (MDRD) Non-Af 134 BUN/Creatinine Ratio 13.1 Glucose 81 Calcium 8.5 Total Bilirubin 0.80 Direct Bilirubin 0.23 AST 1020 H ALT 877 H Alkaline Phosphatase 176 H Total Protein 6.5 Albumin 3.2 Globulin 3.3 Albumin/Globulin Ratio Lipase 152 Urine Color Urine Clarity Urine pH Ur Specific [place] Urine Protein Urine Glucose (UA) Urine Ketones Urine Occult Blood Urine Nitrite Urine Bilirubin Urine Urobilinogen Ur Leukocyte Esterase Urine RBC Urine WBC Ur Squamous Epith Cells Urine Bacteria Urine Mucus Hepatitis A IgM Ab Pending Hep Bs Antigen Pending Hep B Core IgM Ab Pending Hepatitis C Ab (EIA) Pending Clinical Impression(s) from Imaging Studies Abdomen CT 10/31/18 14:12 IMPRESSION: Dilated common bile. Recommend correlation with liver function test. Moderate to marked fecal retention. Electronically Signed: Ricardo You MD at 16:34 EST , Service support , Medical Necessity - Tobacco Use Smoking Status: Former smoker Assessment/Plan All Active Problems Abdominal pain (Acute) Nausea and vomiting (Acute) Common bile duct dilatation (Acute) 38-year-old female with elevated LFTs and dilated common bile duct 1. Patient had dilated common bile duct on CT yesterday with normal LFTs. Today her AST and ALT are markedly elevated. Her bilirubin remains normal. Her white count is also decreased to normal. I did discuss ERCP with the patient and I did offer her ERCP today. All questions were answered but the patient does not want to proceed with surgery as she cannot reach her family does not want to go to surgery without having her family present. As her bilirubin is normal but only her AST and ALT are markedly elevated I will also order a hepatitis panel. Depending on what her LFTs do in the morning she may or may not have MRCP tomorrow. If her LFTs continue to rise I would recommend ERCP instead. 2. Continue clear liquids and PPI. 3. Patient did have some strands of blood in her vomitus. If she does have ERCP I will perform an EGD at that time as well. Denys Santos MD Pager: [facility] [address] [place] [address], [address] [place] [address] Office:
--- NOTE | 2018-11-01 09:24 | PN.SURG_ITS ---
Patient Problems: Active and Suspected Problems Abdominal pain (Acute) Nausea and vomiting (Acute) Common bile duct dilatation (Acute) Subjective: Patient is still complaining of intermittent cramping right upper quadrant pain. She did vomit up some more strands of blood this morning. - Physical Exam General: Alert, Oriented x3, Cooperative Lungs: Normal air movement Cardiovascular: Regular rate, Regular Rhythm Abdomen: Soft, Non-Distended, Tender Musculoskeletal: No Muscle Wasting Neurological: Cranial nerves II-XII grossly intact Psych/Mental Status: Normal Affect Vital Signs Temp Pulse Resp BP Pulse Ox 98.1 F 80 18 132/83 H 97 11/01/18 04:31 11/01/18 04:31 11/01/18 04:31 11/01/18 04:31 11/01/18 04:31 Oxygen Delivery Method Room Air Weight: 121 lb Body Mass Index (BMI) 22.4 Intake and Output for Last 24 Hours 10/30/18 10/31/18 11/02/18 23:59 23:59 00:59 Intake Total 1328 / 1328 1230 / 1230 Output Total 400 / 400 700 / 700 Balance 928 / 928 530 / 530 Laboratory Tests Past 24 Hrs 10/31/18 10/31/18 10/31/18 13:40 14:35 14:35 WBC 13.7 H RBC 4.95 Hgb 14.4 Hct 45.3 MCV 91.5 MCH 29.1 MCHC 31.8 L RDW 13.6 RDW Differential 44.3 H Plt Count 320 MPV 9.7 Immature Gran % (Auto) 0.300 Neut % (Auto) 81.5 H Lymph % (Auto) 9.9 L [place] % (Auto) 6.1 Eos % (Auto) 2.0 Baso % (Auto) 0.2 Absolute Neuts (auto) 11.1 H Absolute Lymphs (auto) 1.35 Total Counted Not Reportable Sodium 140 Potassium 4.0 Chloride 104 Carbon Dioxide 29.0 Anion Gap 7 BUN 11 Creatinine 0.62 Estim Creat Clear Calc 91.02 Est GFR (MDRD) Af Amer 136 Est GFR (MDRD) Non-Af 113 BUN/Creatinine Ratio 17.7 Glucose 92 Calcium 9.1 Total Bilirubin 0.40 Direct Bilirubin AST 10 L ALT 15 Alkaline Phosphatase 105 Total Protein 8.0 Albumin 4.1 Globulin 3.9 Albumin/Globulin Ratio 1.1 Lipase 112 Urine Color Yellow Urine Clarity Clear Urine pH 6.5 Ur Specific [place] 1.010 Urine Protein Negative Urine Glucose (UA) Normal Urine Ketones Negative Urine Occult Blood 10 H Urine Nitrite Negative Urine Bilirubin Negative Urine Urobilinogen Normal Ur Leukocyte Esterase Negative Urine RBC 0 SEEN Urine WBC 0 SEEN Ur Squamous Epith Cells 0-5 SEEN Urine Bacteria RARE Urine Mucus 0 SEEN Hepatitis A IgM Ab Hep Bs Antigen Hep B Core IgM Ab Hepatitis C Ab (EIA) 11/01/18 11/01/18 11/01/18 06:05 06:05 08:00 WBC 9.7 RBC 4.11 L Hgb 12.4 Hct 37.8 MCV 92.0 MCH 30.2 MCHC 32.8 RDW 13.6 RDW Differential 45.2 H Plt Count 301 MPV 10.2 Immature Gran % (Auto) 0.300 Neut % (Auto) 70.3 H Lymph % (Auto) 14.9 L [place] % (Auto) 11.2 H Eos % (Auto) 2.8 Baso % (Auto) 0.5 Absolute Neuts (auto) 6.8 Absolute Lymphs (auto) 1.44 Total Counted Not Reportable Sodium 142 Potassium 4.2 Chloride 108 H Carbon Dioxide 28.0 Anion Gap 6 BUN 7 Creatinine 0.53 L Estim Creat Clear Calc 106.47 Est GFR (MDRD) Af Amer 163 Est GFR (MDRD) Non-Af 134 BUN/Creatinine Ratio 13.1 Glucose 81 Calcium 8.5 Total Bilirubin 0.80 Direct Bilirubin 0.23 AST 1020 H ALT 877 H Alkaline Phosphatase 176 H Total Protein 6.5 Albumin 3.2 Globulin 3.3 Albumin/Globulin Ratio Lipase 152 Urine Color Urine Clarity Urine pH Ur Specific [place] Urine Protein Urine Glucose (UA) Urine Ketones Urine Occult Blood Urine Nitrite Urine Bilirubin Urine Urobilinogen Ur Leukocyte Esterase Urine RBC Urine WBC Ur Squamous Epith Cells Urine Bacteria Urine Mucus Hepatitis A IgM Ab Pending Hep Bs Antigen Pending Hep B Core IgM Ab Pending Hepatitis C Ab (EIA) Pending Clinical Impression(s) from Imaging Studies Abdomen CT 10/31/18 14:12 IMPRESSION: Dilated common bile. Recommend correlation with liver function test. Moderate to marked fecal retention. Electronically Signed: Ricardo You MD at 16:34 EST , Service support , Medical Necessity - Tobacco Use Smoking Status: Former smoker Assessment/Plan All Active Problems Abdominal pain (Acute) Nausea and vomiting (Acute) Common bile duct dilatation (Acute) 38-year-old female with elevated LFTs and dilated common bile duct 1. Patient had dilated common bile duct on CT yesterday with normal LFTs. Today her AST and ALT are markedly elevated. Her bilirubin remains normal. Her white count is also decreased to normal. I did discuss ERCP with the patient and I did offer her ERCP today. All questions were answered but the patient does not want to proceed with surgery as she cannot reach her family does not want to go to surgery without having her family present. As her bilirubin is normal but only her AST and ALT are markedly elevated I will also order a hepatitis panel. Depending on what her LFTs do in the morning she may or may not have MRCP tomorrow. If her LFTs continue to rise I would recommend ERCP instead. 2. Continue clear liquids and PPI. 3. Patient did have some strands of blood in her vomitus. If she does have ERCP I will perform an EGD at that time as well. Denys Santos MD Pager: [facility] [address] [place] [address], [address] [place] [address] Office:
--- NOTE | 2018-11-01 11:00 | NURSING ---
CLOTH COLORER found patient attempting to exit the floor via elevator with the IV pole carrying all of her belongings. Directed the patient back to room. This RN in room to speak with patient. I advised with the IV pole we encourage her to stay on our unit. The niece of the patient stated she wanted to smoke. I offered to get a nicotine patch, the patient refused. Will monitor.
--- NOTE | 2018-11-01 12:14 | NURSING ---
Patient has drank a large volume of fluids comprised of mnt dew, sprite, broth, jello and water. Is complaining of nausea. I advised the patient to sip/ take small bites of clears. The patient states the liquid is not causing the nausea and continued to drink her mnt dew.
--- NOTE | 2018-11-01 14:15 | NURSING ---
Addendum entered by Barbara Dick 11/01/18 14:36: notified of below. No orders Original Note: Pt remains very tearful and anxious. BP elevated. Also reports pain. Will give anxiety and pain medication and recheck BP following.
--- NOTE | 2018-11-01 15:36 | NURSING ---
Patient has drank 3 regular coffees in 8oz with 12 sugars in it at this time. Encouraged to drink decaf instead of regular d/t elevated BP. Again reminded pt to sip liquids to not cause nausea.
--- NOTE | 2018-11-01 16:20 | NURSING ---
Walking into room and found patient drinking milkshake and eating fries that boyfriend brought in. Instructed again on clear liquid diet. Patient and boyfriend verbalized understanding. Went out of room for a few minutes and came back in and found patient eating again. paged @ this time.
--- NOTE | 2018-11-01 16:30 | NURSING ---
Entered room for a 3rd time to notify patient of MD order to take away pain medication. Found patient sitting in the bed holding big mac container. She tried to hide it beside her when I entered the room. I advised the patient that the MD would be taking away the pain medication since she was not having any pain and was able to eat arabic fries, milkshake and now a big mac. I again advised on a clear liquid diet and the patient stated Well if he is taking away my pain medication I am going to eat this all (pointing to food). I recommended to the patient that she should not eat solid foods as this could cause nausea and pain and could worsen her condition. The patient stated she would eat what I want. Boyfriend @ bedside present for whole conversation. Shen Ryder RN notified of situation.
--- NOTE | 2018-11-01 18:23 | NURSING ---
I have been unable to reassess pt BP, and complete my 1800 rounds on patient. She is in bathroom with significant other. hospital television rental clerk reported they were observed on camera to enter bathroom together about 1700.
--- NOTE | 2018-11-01 18:57 | NURSING ---
Patient and significant other observed on camera together in bed.
--- NOTE | 2018-11-01 19:22 | NURSING ---
This RN was clocked out and was leaving the floor. I observed this patient that I had today and boyfriend going to elevator. The patient had removed her IV pump from her IV but still had IV in arm. I directed patient and boyfriend back to the room. I notified the oncoming nurse, Fidelina who went to the room to assess situation.
--- NOTE | 2018-11-01 19:30 | NURSING ---
Pt walks out to desk, asks nurse to come in her room and reconnect her IV. Asked pt why she disconnected her IV, she states she had to unhook it to take a shower. IV tubing unhooked and clamped. Pt states, I guess [facility] taught me well. Pt instructed to call nurse next time when she needs unhooked. Pt c/o 04/03 abdominal pain, requesting pain meds. Instructed that she only has Tylenol available for pain and it is not due yet. Pt states, So I eat two honduran fries and I get my pain meds taken away? Pt educated that she has been ordered a clear liquid diet, and she cannot be eating regular food. Pt states, well I guess if I'm not going to be getting pain meds, I'll just have my boyfriend bring me a cheeseburger to eat.
[2018-11-01] MEDS: hydrALAZINE 20 MG/ML Vial 10 MG IV (19:33)
[2018-11-02] VITALS (16 sets, daily range): BP systolic 98–181; BP diastolic 67–117; PULSE 71–104; RESP 16–20; TEMP 36.5–37.5; O2SAT 95–100
[2018-11-02] MEDS: Acetaminophen 325 MG Tablet 650 MG PO ×4 (03:37→21:42)
[2018-11-02] MEDS: LORazepam 1 MG Tablet PO ×2 (03:37→19:16)
[2018-11-02] MEDS: Lactated Ringers 1,000 ML 125 ML IV ×3 (03:38→23:17)
[2018-11-02 05:41] LABS: AST(SGOT) 167 U/L (15-37); Alanine Aminotransfer ALT/SGPT 504 U/L (13-56); Albumin, Serum 2.9 g/dL (3.2-5.0); Alkaline Phosphatase 148 U/L (45-117); Anion Gap 8 (5-15); BUN 6 mg/dL (7-18); BUN/Creat Ratio 10.1 RATIO (10-20); Calcium,Total 8.6 mg/dL (8.5-10.1); Chloride 105 mmol/L (98-107); Creatinine, Serum 0.59 mg/dL (0.55-1.02); EST Glomerular Filtration Rate 119 mL/min (>60); Est Glom Filt Rate - Afr Amer 144 mL/min (>60); Estimated Creatinine Clearance 95.65 ml/min; Glucose 86 mg/dL (74-106); Potassium 3.6 mmol/L (3.5-5.1); Protein, Total 5.9 g/dL (6.4-8.2); Sodium Level 143 mmol/L (136-145)
[2018-11-02 06:02] LABS: Absolute Lymphocyte Count 1.27 X10^3/ul (0.83-4.51); Absolute Neutrophil Count 5.5 X10^3/uL (2.0-7.7); Basophil# 0.04 X10^3/uL; Basophil% 0.5 % (0-1); Eosinophils% 6.3 % (0-5); Hematocrit 37.6 % (37-47); Lymphocyte # 1.27 X10^3/ul (4.0); Mean Corp Hgb Conc 31.9 g/gl (32-36); Mean Corpuscular Hgb 29.6 pg (27.0-32.0); Mean Corpuscular Volume 92.8 fL (81-99); Monocyte# 0.67 X10^3/uL; Monocyte% 8.4 % (0-10); Neutrophil # 5.46 X10^3/uL (2.7-7.7); Neutrophil % 68.5 % (47-70); Platelet Count 273 K/mm3 (150-450); RBC Distribution Width CV 13.8 % (11.6-14.6); RBC Distribution Width SD 45.7 fl (35.1-43.9); Red Blood Count 4.05 M/mm3 (4.2-5.4)
[2018-11-02 06:10] LABS: POSITIVE COUNT NO; POSITIVE DIFFERENTIAL NO; POSITIVE MORPHOLOGY NO
--- NOTE | 2018-11-02 08:27 | PN.SURG_ITS ---
Patient Problems: Active and Suspected Problems Abdominal pain (Acute) Nausea and vomiting (Acute) Common bile duct dilatation (Acute) Subjective: Patient still complaining of right-sided back pain as well as right-sided upper abdominal pain - Physical Exam General: Alert, No apparent distress Lungs: Normal air movement Abdomen: Soft, Non-Distended, Tender Vital Signs Temp Pulse Resp BP Pulse Ox 97.9 F 71 16 98/67 98 11/02/18 03:33 11/02/18 03:33 11/02/18 03:33 11/02/18 03:33 11/02/18 03:33 Oxygen Delivery Method Room Air Weight: 120 lb 15.835 oz Body Mass Index (BMI) 22.4 Intake and Output for Last 24 Hours 10/31/18 11/01/18 11/02/18 22:59 23:59 23:59 Intake Total 2418 / 2418 Output Total 1000 / 1000 Balance 1418 / 1418 Laboratory Tests Past 24 Hrs 11/01/18 11/02/18 11/02/18 08:00 05:02 05:02 WBC 8.0 RBC 4.05 L Hgb 12.0 Hct 37.6 MCV 92.8 MCH 29.6 MCHC 31.9 L RDW 13.8 RDW Differential 45.7 H Plt Count 273 MPV 10.0 Immature Gran % (Auto) 0.300 Neut % (Auto) 68.5 Lymph % (Auto) 16.0 L Loving % (Auto) 8.4 Eos % (Auto) 6.3 H Baso % (Auto) 0.5 Absolute Neuts (auto) 5.5 Absolute Lymphs (auto) 1.27 Total Counted Not Reportable Sodium 143 Potassium 3.6 Chloride 105 Carbon Dioxide 30.0 Anion Gap 8 BUN 6 L Creatinine 0.59 Estim Creat Clear Calc 95.65 Est GFR (MDRD) Af Amer 144 Est GFR (MDRD) Non-Af 119 BUN/Creatinine Ratio 10.1 Glucose 86 Calcium 8.6 Total Bilirubin 0.40 AST 167 H ALT 504 H Alkaline Phosphatase 148 H Total Protein 5.9 L Albumin 2.9 L Globulin 3.0 Albumin/Globulin Ratio 1.0 Hepatitis A IgM Ab Pending Hep Bs Antigen Pending Hep B Core IgM Ab Pending Hepatitis C Ab (EIA) Pending Medical Necessity - Tobacco Use Smoking Status: Former smoker Assessment/Plan All Active Problems Abdominal pain (Acute) Nausea and vomiting (Acute) Common bile duct dilatation (Acute) 38-year-old female with CBD dilation 1. The patient is having continuing right upper back and right upper quadrant pain. Her LFTs have slightly improved today. I do recommend ERCP to ensure that there is not a gallstone causing ball-valve obstruction. She is still having colicky pain suggestive of choledocholithiasis. Plan for ERCP today. 2. I explained ERCP to the patient including the risks of bleeding, infection, perforation of the bile duct or bowels, pancreatitis. Patient wishes to proceed. Denys Santos MD Pager: [facility] [address] [place] [address], [address] [place] [address] Office:
--- NOTE | 2018-11-02 10:08 | NURSING ---
patient and boyfriend were noted to be in bathroom together. this RN entered room and said it was inappropriate for both of them to be in the bathroom together and pt stated that she was going to take a shower and her boyfriend would help her wash her hair. this RN told pt that we needed to unhook her IV and wrap her IV up. bathroom door was locked and it took several minutes for pt to unlock door. provided chg wash and instructions for pt due to procedure later today, CON[employer]MER Ronen changing sheets, and pt informed that boyfriend will no longer be able to rest in bed with her after her shower and clean linens.
--- NOTE | 2018-11-02 10:32 | CASEMGMT ---
RN CM Assessment Presentation: abdominal pain, common bile duct dilatation. MRCP scheduled. Intro role of CM and purpose of RN CM assessment. Pt is resting in bed, significant other is in room. PCP: Dr. Mar Specialists: Dr. Santos Preferred Pharmacy: [facility], however as pt may need assist with prescriptions- she is agreeable to [facility]. Entered as preferred in chart. Insurance: No insurance now. Pt states she needs to reapply for [employer]. Prescription Benefit: none. Living Arrangements: [place] is from halfway, out on [place]. Lives with significant other, Mike Ruffin. No DME, is independent. Transportation: drives DME: none HHC: none SW referral: for prescription assistance/information. Pt is from halfway. DC PLAN: rubi. Magnolia RIOS RN ACM
--- NOTE | 2018-11-02 10:42 | EKG12_ITS ---
Test Reason : PREOP Blood Pressure : / mmHG Vent. Rate : 081 BPM Atrial Rate : 081 BPM P-R Int : 126 ms QRS Dur : 086 ms QT Int : 384 ms P-R-T Axes : 036 043 057 degrees QTc Int : 446 ms Normal sinus rhythm Normal ECG No previous ECGs available Confirmed by BRIGETTE PHOENIX, ELIZABETH ([id number]), purchasing expeditor WILY MART ([id number]) on 11/13/2018 9:48:09 AM Referred By: SHENG Confirmed By:ELIZABETH MACHUCA MD
--- NOTE | 2018-11-02 12:07 | NURSING ---
report called to endo and pt transported via bed at this time
--- NOTE | 2018-11-02 12:15 | RAD_ITS ---
STUDY: ERCP. REASON FOR EXAM: Female, 38 years old. Dilated common bile duct. Balloon dilatation. FLUOROSCOPY TIME (if supplied): (1:02) minutes/seconds. 2 images were obtained. TECHNIQUE: An ERCP was performed by the surgeon. Imaging was submitted. COMPARISON: None. FINDINGS: There is evidence of a dilated common bile duct. Mild dilatation of the central intrahepatic biliary ducts. RAD/ERCP Biliary Only IMPRESSION: Dilated common bile duct and central intrahepatic biliary ducts. Electronically Signed: Wilmer Greco, at 8:20 EDT , Service support ,
--- NOTE | 2018-11-02 13:03 | DCINST_ITS ---
- Discharge Diagnoses Current Active Problems: Current Active and Chronic Problems Abdominal pain (Acute) Nausea and vomiting (Acute) Common bile duct dilatation (Acute) You will use the following diet at home:: No restrictions Your food should be the consistency of: Regular Discharge Activity: No Restrictions Call your doctor if you observe: Fever of 101 or Higher Allergies/Adverse Reactions: Allergies adhesive Allergy (Verified 10/31/18 13:32) Other BURN divalproex sodium [From Depakote] Allergy (Verified 10/31/18 13:32) Hives ibuprofen Allergy (Verified 10/31/18 13:32) Itching ketorolac tromethamine [From Toradol] Allergy (Verified 10/31/18 13:32) Hives latex Allergy (Verified 10/31/18 13:32) Other BURN rizatriptan [From Maxalt] Allergy (Verified 10/31/18 13:32) Shortness of breath sumatriptan [From Imitrex] Allergy (Verified 10/31/18 13:32) Shortness of breath sumatriptan succinate [From Imitrex] Allergy (Verified 10/31/18 13:32) Shortness of breath tramadol [From Ultram] Allergy (Verified 10/31/18 13:32) Hives amitriptyline Adverse Reaction (Verified 10/31/18 13:32) Other amlodipine besylate [From Norvasc] Adverse Reaction (Verified 10/31/18 13:32) Other clonidine HCl [From Catapres] Adverse Reaction (Verified 10/31/18 13:32) Other metoprolol Adverse Reaction (Verified 10/31/18 13:32) Other propranolol HCl [From Inderal LA] Adverse Reaction (Verified 10/31/18 13:32) Other CONTRAST DYE Allergy (Uncoded 10/31/18 13:32) Rash Medications to take at Discharge Albuterol Inhaler [Ventolin Hfa (SP)] 2 puff INHALATION Q4H PRN PRN 10/31/18 Carvedilol 12.5 mg BID 10/31/18 Cetirizine HCl [Zyrtec] 10 mg PO DAILY 10/31/18 Clonidine HCl 0.1 mg BID 10/31/18 Ferrous Sulfate DAILY 10/31/18 Fioricet 10/31/18 Lisinopril [Zestril] 10 mg PO DAILY 10/31/18 Lorazepam [Ativan] 2 mg PO TID PRN PRN 10/31/18 Omeprazole 20 mg DAILY 10/31/18 Potassium Chloride DAILY 10/31/18 Primary Care Physician: Lukas Mar DO [Primary Care Provider] - Test Results: Test results from this visit will be discussed in further detail at your follow- up appointment, if applicable.
--- NOTE | 2018-11-02 13:09 | OP.ENDO_ITS ---
11/02/2018 Lukas Mar [address] [id number] Re : ERCP procedure for Kassie Prado Dear Dr. Mar This procedure was performed on Friday, November 02, 2018. My impressions and recommendations are as follows: Impressions : - The major papilla appeared normal. - The entire main bile duct was dilated, uncertain etiology. - A biliary sphincterotomy was performed. - The biliary tree was swept and nothing was found. Recommendations : - Discharge patient to home. My findings are described in the full procedure note, which is enclosed. If I can be of further assistance, please feel free to contact me at Doctor phone number(s): , Work: . Sincerely, Denys Santos MD 11/02/2018 1:09:16 PM This report has been signed electronically.
--- NOTE | 2018-11-02 13:44 | CT_ITS ---
STUDY: CT ABDOMEN AND PELVIS WITHOUT CONTRAST REASON FOR EXAM: Female, 38 years old. Severe abdominal pain following recent ERCP and sphincterotomy. RADIATION DOSAGE (If Supplied By Facility): CTDIvol = ( 6.53 ) mGy, DLP = ( 323.12 ) mGycm TECHNIQUE: Transaxial images were obtained from the dome of the diaphragm to the symphysis pubis without oral contrast, and without intravenous contrast. Sagittal and coronal images were reconstructed. Individualized dose optimization techniques were used for this CT. COMPARISON: Comparison is made with prior study dated October 31, 2018. FINDINGS: Findings suggestive of bilateral basilar atelectasis. The visualized portions of the heart are within normal limits. Normal liver. There are surgical clips in the gallbladder fossa consistent with a prior cholecystectomy. Contrast is seen within the intrahepatic biliary ducts secondary to the recent ERCP. Contrast is also seen within the dilated common bile duct. The common bile duct measures 1.5 cm in transverse dimension. Normal spleen. Minimally dilated pancreatic duct. Normal bilateral adrenal glands. Normal right kidney. Normal left kidney. Normal visualized stomach. Normal small intestine. Normal colon. There are surgical clips in the region of the appendix consistent with a prior appendectomy. There is scattered atherosclerotic calcification of the abdominal aorta, without a demonstrated aneurysm. Normal inferior vena cava. Normal retroperitoneum. Normal urinary bladder. There is absence of the uterus consistent with a prior hysterectomy. Normal abdominal wall. Normal osseous structures. CT/Abdomen/Pelvis without Cont IMPRESSION: Findings suggestive of bibasilar atelectasis. Status post ERCP with contrast in the intrabiliary ducts and common bile duct. Dilated common bile duct measuring 1.5 cm in transverse dimension. Electronically Signed: Wilmer Greco, at 14:34 EDT , Service support ,
[2018-11-02] MEDS: Carvedilol 12.5 MG Tablet PO ×2 (15:27→21:42)
[2018-11-02] MEDS: Lisinopril 10 MG Tablet PO (15:27)
--- NOTE | 2018-11-02 15:31 | CHAPLAIN ---
patient was out of room; left calling card
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
[2018-11-02] MEDS: Ondansetron 4 MG/2 ML Vial IV (18:47)
[2018-11-02] MEDS: hydrALAZINE 20 MG/ML Vial 10 MG IV (21:47)
[2018-11-03] MEDS: Acetaminophen 325 MG Tablet 650 MG PO (03:59)
[2018-11-03] MEDS: Ondansetron 4 MG/2 ML Vial IV (03:59)
[2018-11-03] MEDS: LORazepam 1 MG Tablet PO ×2 (03:59→10:25)
[2018-11-03] MEDS: 0.9% NaCl Peripheral Flush Adult/Peds IV (04:00)
[2018-11-03 04:05] VITALS: BP 130/95; PULSE 92; RESP 16; TEMP 37.3; O2SAT 100
[2018-11-03] MEDS: Lactated Ringers 1,000 ML 125 ML IV (06:36)
[2018-11-03 07:40] LABS: Absolute Lymphocyte Count 1.87 X10^3/ul (0.83-4.51); Absolute Neutrophil Count 12.9 X10^3/uL (2.0-7.7); Basophil# 0.03 X10^3/uL; Basophil% 0.2 % (0-1); Eosinophils% 2.5 % (0-5); Hematocrit 44.6 % (37-47); Hemoglobin 14.4 g/dl (12.0-15.0); Lymphocyte # 1.87 X10^3/ul (4.0); Lymphocyte % 11.5 % (19-41); Mean Corp Hgb Conc 32.3 g/gl (32-36); Mean Corpuscular Hgb 29.8 pg (27.0-32.0); Mean Corpuscular Volume 92.3 fL (81-99); Mean Platelet Vol. 9.6 fl (6.2-12.0); Monocyte# 0.98 X10^3/uL; Neutrophil # 12.92 X10^3/uL (2.7-7.7); Neutrophil % 79.4 % (47-70); Platelet Count 361 K/mm3 (150-450); RBC Distribution Width CV 14.2 % (11.6-14.6); RBC Distribution Width SD 47.1 fl (35.1-43.9); Red Blood Count 4.83 M/mm3 (4.2-5.4); White Blood Count 16.3 K/mm3 (4.4-11.0)
[2018-11-03 07:41] LABS: POSITIVE COUNT NO; POSITIVE DIFFERENTIAL NO; POSITIVE MORPHOLOGY NO
[2018-11-03 07:45] VITALS: BP 135/100; PULSE 88; RESP 14; TEMP 36.6; O2SAT 96
[2018-11-03 07:59] LABS: ALB/GLOB Ratio 1.1 RATIO (0.9-2.4); AST(SGOT) 42 U/L (15-37); Alanine Aminotransfer ALT/SGPT 361 U/L (13-56); Albumin, Serum 3.7 g/dL (3.2-5.0); Alkaline Phosphatase 159 U/L (45-117); Anion Gap 4 (5-15); BUN 4 mg/dL (7-18); Calcium,Total 8.8 mg/dL (8.5-10.1); Chloride 104 mmol/L (98-107); Creatinine, Serum 0.66 mg/dL (0.55-1.02); EST Glomerular Filtration Rate 105 mL/min (>60); Est Glom Filt Rate - Afr Amer 126 mL/min (>60); Globulin 3.5 g/dL (2.2-4.2); Glucose 95 mg/dL (74-106); Potassium 3.9 mmol/L (3.5-5.1); Protein, Total 7.2 g/dL (6.4-8.2); Sodium Level 139 mmol/L (136-145)
--- NOTE | 2018-11-03 08:10 | DS.PCM_ITS ---
Discharge Date and Diagnosis - Problem List Patient Problems: Active and Suspected Problems Abdominal pain (Acute) Nausea and vomiting (Acute) Common bile duct dilatation (Acute) Date of Admission: 10/31/18 Date of Discharge: 11/03/18 - Primary Discharge Diagnosis Active and Suspected Problems Abdominal pain (Acute) Nausea and vomiting (Acute) Common bile duct dilatation (Acute) Hospital Course and Treatment Imaging Results: Clinical Impression(s) from Imaging Studies Abdomen CT 10/31/18 14:12 IMPRESSION: Dilated common bile. Recommend correlation with liver function test. Moderate to marked fecal retention. Electronically Signed: Ricardo You MD at 16:34 EST , Service support , Abdomen/Pelvis CT 11/02/18 13:44 IMPRESSION: Findings suggestive of bibasilar atelectasis. Status post ERCP with contrast in the intrabiliary ducts and common bile duct. Dilated common bile duct measuring 1.5 cm in transverse dimension. Electronically Signed: Wilmer Greco, at 14:34 EDT , Service support , Operations: ERCP Procedures: None Summary of Care Provided: The patient is a 38 year old F presented with right upper quadrant pain. CT showed dilated common bile duct. She was admitted for observation following day her liver enzymes were increased. She refused ERCP that day. The following day she was taken for ERCP and there were no stones found in a dilated duct. The bile duct tapered nicely and a sphincterotomy was performed. There was bile flowing from the duct. She was in pain after surgery and a CT was performed which showed no signs of perforation. She tolerated a regular diet and the following day she was discharged. Patient Problems: Active and Suspected Problems Abdominal pain (Acute) Nausea and vomiting (Acute) Common bile duct dilatation (Acute) - Physical Exam Vital Signs Temp Pulse Resp BP Pulse Ox 97.8 F 88 14 135/100 H 96 11/03/18 07:45 11/03/18 07:45 11/03/18 07:45 11/03/18 07:45 11/03/18 07:45 Oxygen Delivery Method Room Air Weight: 120 lb 15.835 oz Body Mass Index (BMI) 22.4 Intake and Output for Last 24 Hours 11/01/18 11/02/18 11/03/18 23:59 23:59 23:59 Intake Total 5496 / 5496 1111 / 1111 Output Total 3600 / 3600 1000 / 1000 Balance 1896 / 1896 111 / 111 Laboratory Tests Past 24 Hrs 11/03/18 11/03/18 07:25 07:25 WBC 16.3 H RBC 4.83 Hgb 14.4 Hct 44.6 MCV 92.3 MCH 29.8 MCHC 32.3 RDW 14.2 RDW Differential 47.1 H Plt Count 361 MPV 9.6 Immature Gran % (Auto) 0.400 Neut % (Auto) 79.4 H Lymph % (Auto) 11.5 L [place] % (Auto) 6.0 Eos % (Auto) 2.5 Baso % (Auto) 0.2 Absolute Neuts (auto) 12.9 H Absolute Lymphs (auto) 1.87 Total Counted Not Reportable Sodium 139 Potassium 3.9 Chloride 104 Carbon Dioxide 31.0 Anion Gap 4 L BUN 4 L Creatinine 0.66 Estim Creat Clear Calc 85.50 Est GFR (MDRD) Af Amer 126 Est GFR (MDRD) Non-Af 105 BUN/Creatinine Ratio 6.0 L Glucose 95 Calcium 8.8 Total Bilirubin 0.50 AST 42 H ALT 361 H Alkaline Phosphatase 159 H Total Protein 7.2 Albumin 3.7 Globulin 3.5 Albumin/Globulin Ratio 1.1 Discharge Activity: No Restrictions Call your doctor if you observe: Fever of 101 or Higher Home Medications: Medications to take at Discharge Albuterol Inhaler [Ventolin Hfa] 2 puff INHALATION Q4H PRN PRN 10/31/18 Carvedilol 12.5 mg BID 10/31/18 Cetirizine HCl [Zyrtec] 10 mg PO DAILY 10/31/18 Clonidine HCl 0.1 mg BID 10/31/18 Lisinopril [Zestril] 10 mg PO DAILY 10/31/18 Lorazepam [Ativan] 2 mg PO TID PRN PRN 10/31/18 Omeprazole 20 mg DAILY 10/31/18 Acetaminophen [Tylenol Tablet] 650 mg PO Q6H PRN PRN tablet 11/02/18 Primary Care Physician: Lukas Mar DO [Primary Care Provider] - Please Follow Up With: [facility] When: Medical Necessity - Tobacco Use Smoking Status: Former smoker Meaningful Use Info Meaningful Use Diagnoses (Choose all that apply): None applicable
[2018-11-03] MEDS: Carvedilol 12.5 MG Tablet PO (08:58)
[2018-11-03] MEDS: Lisinopril 10 MG Tablet PO (08:58)
[2018-11-03 09:44] LABS: HEPATITIS B SURFACE AG Negative (Negative); Hepatitis A IgM Antibody Negative (Negative); Hepatitis B Core AB IgM Negative (Negative)
[2018-11-03 09:45] LABS: Hep C Antibodies <0.1 s/co ratio (0.0-0.9)
--- NOTE | 2018-11-03 10:02 | NURSING ---
called [facility] to notify them of pt discharge. told them that pt asked if she could just leave on her own, they stated they needed to pick her up to transport back to [facility]. this RN told the officer that we cannot keep her here against her will and we will delay giving her paperwork to try to keep her from leaving, but that if she walks off the unit, she has been discharged and we cannot stop her. officer stated that they would be getting transportation here as soon as possible. they will call charge nurse phone when they are on the way.
--- NOTE | 2018-11-03 10:03 | NURSING ---
Jacquelin, rn charge called retirement at this time and notified them that patient is d/c'ed. Pt requested to take self, however, staff from retirement state that patient cannot, as she will probably not return to retirement. Notified that we cannot hold patient here as she is d/c'ed- staff state they will send someone here at this time for transport. boyfriend is currently in room.
== END 2018-11-03 10:40 | disposition home or self-care (01) | DRG 446 ==
LOC: ED 18:11 → MS2 18:31
PROVIDERS: Admitting Provider Surgery; Emergency Provider Emergency Medicine; Family Provider Student in an Organized Health Care Education/Training Program; PCP Student in an Organized Health Care Education/Training Program; Visit Provider Surgery
PROC: 0F798ZZ Dilation of Common Bile Duct, Via Natural or Artificial Opening Endoscopic (ICD-10-PCS; CPT 43260; principal; 2018-11-02 15:00)
DX: K83.8 Other specified diseases of biliary tract (principal); R10.11 Right upper quadrant pain; R11.2 Nausea with vomiting, unspecified; G43.909 Migraine, unspecified, not intractable, without status migrainosus; Z90.710 Acquired absence of both cervix and uterus; Z90.49 Acquired absence of other specified parts of digestive tract
CPT/HCPCS: 36415; 74176; 74328; 76000; 80048; 80053; 80074; 80076; 81001; 83690; 85025; 93005; 97802; 99284; 99406; J7030; J7120; A4216; J2405

== ENCOUNTER → 2018-12-04 11:00 | Outpatient (CLI) | payer SELFPAY ==
[2018-12-04 11:00] VITALS: BMI 22.1
[2018-12-04 12:14] LABS: Bacteria 0 SEEN /hpf (None Seen); Mucous, Urine 0 SEEN /hpf (<or=2+)
[2018-12-04 12:23] LABS: Hematocrit 40.4 % (37-47); Hemoglobin 12.9 g/dl (12.0-15.0); Mean Corp Hgb Conc 31.9 g/gl (32-36); Mean Corpuscular Hgb 29.3 pg (27.0-32.0); Mean Corpuscular Volume 91.8 fL (81-99); Mean Platelet Vol. 10.2 fl (6.2-12.0); Platelet Count 271 K/mm3 (150-450); RBC Distribution Width CV 13.4 % (11.6-14.6); RBC Distribution Width SD 44.4 fl (35.1-43.9); White Blood Count 10.8 K/mm3 (4.4-11.0)
[2018-12-04 12:29] LABS: Anion Gap 4 (5-15); BUN 9 mg/dL (7-18); Calcium,Total 8.8 mg/dL (8.5-10.1); Chloride 108 mmol/L (98-107); Creatinine, Serum 0.64 mg/dL (0.55-1.02); EST Glomerular Filtration Rate 108 mL/min (>60); Est Glom Filt Rate - Afr Amer 131 mL/min (>60); Glucose 98 mg/dL (74-106); Potassium 3.7 mmol/L (3.5-5.1); Sodium Level 143 mmol/L (136-145)
[2018-12-04 12:33] LABS: Scan Indicated on CBC? Y/N NO
[2018-12-04 12:44] LABS: Color, Urine Yellow (Yellow); Glucose, Dipstick Normal (Normal); Ketone-Dipstick Negative (Negative); Leukocyte Esterase-Dipstick 500 /ul (Negative); Nitrite-Dipstick Positive (Negative); Occult Blood-Urine 250 /ul (Negative); Protein-Dipstick 30 mg/dl (Negative); Urine Bilirubin Dipstick Negative (Negative); Urine Clarity Sl. Cloudy (Clear); Urine Urobilinogen Normal (Normal)
[2018-12-04 12:54] LABS: Red Blood Cells-Urine > 100 SEEN /hpf (0-5); Squamous Epithelial Cells - UA 10-25 SEEN /hpf (5-10); White Blood Cells 25-50 SEEN /hpf (0-5)
== END ==
PROVIDERS: Family Provider Student in an Organized Health Care Education/Training Program; PCP Student in an Organized Health Care Education/Training Program
DX: R10.9 Unspecified abdominal pain (principal)
CPT/HCPCS: 80048; 81001; 85027

== ENCOUNTER → 2018-12-08 12:20 | Outpatient (CLI) | payer SELFPAY ==
[2018-12-04 11:00] VITALS: BMI 22.1
== END ==
PROVIDERS: Family Provider Student in an Organized Health Care Education/Training Program; PCP Student in an Organized Health Care Education/Training Program
DX: R10.9 Unspecified abdominal pain (principal)
CPT/HCPCS: 87086; 87088

== ENCOUNTER 2019-08-23 18:07 | Emergency (ER) | payer MEDICAID, SELFPAY ==
[2019-03-31 18:51] VITALS: BMI 20.7
[2019-08-23 18:09] VITALS: TEMP -17.7; TEMP 0; BMI 21.1
[2019-08-23 18:16] VITALS: PULSE 135; RESP 26; TEMP 36.4; O2SAT 93
--- NOTE | 2019-08-23 19:24 | ED.RN ---
pt left without being seen by the drKeith Officer [facility]il [facility]
--- NOTE | 2019-08-23 19:30 | ED.VIS.GEN ---
History of Present Illness Chief Complaint: Anxiety Detail of Chief Complaint: Patient became anxious when she was placed under arrest Narrative: Patient fled from the emergency department and evaded safety instruction police officer. She is no longer on the premises. Past Medical History - Allergies and Home Meds Allergies/Adverse Reactions: Allergies adhesive Allergy (Verified 10/31/18 13:32) Other BURN divalproex sodium [From Depakote] Allergy (Verified 10/31/18 13:32) Hives ibuprofen Allergy (Verified 10/31/18 13:32) Itching ketorolac tromethamine [From Toradol] Allergy (Verified 10/31/18 13:32) Hives latex Allergy (Verified 10/31/18 13:32) Other BURN rizatriptan [From Maxalt] Allergy (Verified 10/31/18 13:32) Shortness of breath sumatriptan [From Imitrex] Allergy (Verified 10/31/18 13:32) Shortness of breath sumatriptan succinate [From Imitrex] Allergy (Verified 10/31/18 13:32) Shortness of breath tramadol [From Ultram] Allergy (Verified 10/31/18 13:32) Hives amitriptyline Adverse Reaction (Verified 10/31/18 13:32) Other amlodipine besylate [From Norvasc] Adverse Reaction (Verified 10/31/18 13:32) Other clonidine HCl [From Catapres] Adverse Reaction (Verified 10/31/18 13:32) Other metoprolol Adverse Reaction (Verified 10/31/18 13:32) Other propranolol HCl [From Inderal LA] Adverse Reaction (Verified 10/31/18 13:32) Other CONTRAST DYE Allergy (Uncoded 10/31/18 13:32) Rash Primary Care Physician: Lukas Mar DO [Primary Care Provider] - Surgical History: - - Complicated hysterectomy which required transfusion and several surgeons, appendectomy, cholecystectomy Smoking Status: Current every day smoker - Family History Maternal Family History: Reports: No pertinent history Physical Exam Vital Signs/Narrative: Vital Signs Temp Pulse Resp Pulse Ox 08/23/19 18:16 97.5 F L 135 H 26 H 93 08/23/19 18:09 0 F L ED Disposition - Plan for ED Patient: Disposition: LEFT WITHOUT BEING SEEN Diagnosis: Anxiety as acute reaction to exceptional stress Referrals: Lukas Mar DO [Primary Care Provider] -
== END 2019-08-23 19:25 | disposition left against medical advice (07) ==
LOC: ED 19:23
PROVIDERS: Emergency Provider Emergency Medicine; Family Provider Student in an Organized Health Care Education/Training Program; PCP Student in an Organized Health Care Education/Training Program
DX: F41.1 Generalized anxiety disorder (principal); F43.0 Acute stress reaction; F17.200 Nicotine dependence, unspecified, uncomplicated; Z53.21 Procedure and treatment not carried out due to patient leaving prior to being seen by health care provider
CPT/HCPCS: 99282